=== PATIENT | female | born 1940 | race Caucasian/White ===

== ENCOUNTER 2017-12-05 20:19 | Emergency (ER) | payer MEDICARE, OTHER ==
[2017-12-06] MEDS ORDERED: SODIUM CHLORIDE 0.9% 500 ML IV STA (00:19)
[2017-12-06] MEDS ORDERED: hydrALAZINE HCL 20 MG/ML 1 ML VIAL IVP STA ×2 (00:19→01:08)
--- NOTE | 2017-12-06 00:21 | ED ---
General Adult HPI - General Chief complaint: Headache Stated complaint: headaches Time Seen by Provider: 12/06/17 00:02 Source: patient, RN notes reviewed Mode of arrival: ambulatory Limitations: no limitations - History of Present Illness Initial comments: Patient is a 77-year-old female presented to the emergency room with chief complaint of a headache. Patient states that headache started earlier in the day. Patient doesn't that she has had a history of hypertension but has not been taking her medications. She states this headache is located in front of her head. She is worried that maybe due to fumes coming from her apartment below her. Patient denies any other complaints or symptoms at this time. Patient denies any recent fever, chills, shortness of breath, chest pain, back pain, abdominal pain, nausea or vomiting, numbness or tingling, dysuria or hematuria, constipation or diarrhea, visual changes, or any other complaints. - Related Data Previous Rx's Medication Instructions Recorded amLODIPine [Norvasc] 10 mg PO DAILY #30 tablet 12/06/17 Allergies Allergy/AdvReac Type Severity Reaction Status Date / Time No Known Allergies Allergy Verified 12/05/17 23:42 Review of Systems ROS Statement: Those systems with pertinent positive or pertinent negative responses have been documented in the HPI. ROS Other: All systems not noted in ROS Statement are negative. Past Medical History Past Medical History: Hypertension History of Any Multi-Drug Resistant Organisms: None Reported Past Surgical History: No Surgical Hx Reported Past Psychological History: No Psychological Hx Reported Smoking Status: Never smoker Past Alcohol Use History: None Reported, Occasional Past Drug Use History: None Reported General Exam - General Exam Comments Initial Comments: General: The patient is awake and alert, in no distress, and does not appear acutely ill. Eye: Pupils are equal, round and reactive to light, extra-ocular movements are intact. No nystagmus. There is normal conjunctiva bilaterally. No signs of icterus. Ears, nose, mouth and throat: There are moist mucous membranes and no oral lesions. Neck: The neck is supple, there is no tenderness or JVD. Cardiovascular: There is a regular rate and rhythm. No murmur, rub or gallop is appreciated. Respiratory: Lungs are clear to auscultation, respirations are non-labored, breath sounds are equal. No wheezes, stridor, rales, or rhonchi. Musculoskeletal: Normal ROM, no tenderness. Strength 5/5. Sensation intact. Pulses equal bilaterally 2+. Neurological: A&O x 3. CN II-XII intact, There are no obvious motor or sensory deficits. Coordination appears grossly intact. Speech is normal. Skin: Skin is warm and dry and no rashes or lesions are noted. Psychiatric: Cooperative, appropriate mood & affect, normal judgment. Limitations: no limitations Course Vital Signs 12/05/17 12/05/17 12/06/17 20:39 23:52 00:35 Temperature 98.6 F Pulse Rate 87 Respiratory 20 Rate Blood Pressure 228/114 207/118 219/113 O2 Sat by Pulse 97 Oximetry 12/06/17 12/06/17 12/06/17 00:54 01:08 01:19 Temperature Pulse Rate Respiratory Rate Blood Pressure 218/102 205/91 203/91 O2 Sat by Pulse Oximetry 12/06/17 12/06/17 12/06/17 01:36 02:04 02:11 Temperature 98.1 F Pulse Rate 77 Respiratory 16 Rate Blood Pressure 148/68 93/53 111/58 O2 Sat by Pulse 96 Oximetry 12/06/17 02:54 Temperature Pulse Rate 82 Respiratory 16 Rate Blood Pressure 133/63 O2 Sat by Pulse 99 Oximetry Medical Decision Making - Medical Decision Making Patient reexamined at this time shows no signs of distress. Patient feeling much better after medications. Patient blood pressure much improved here in emergency room. Patient states she took her last amlodipine at home. She states she currently does not have a family physician. Patient says she's not been taking her blood pressure medication because she does not like taking the medicine. Patient states she will begin taking it again. She states she does plan on following up pressure given information for family physician to follow- up with. Patient doing well at this time states she is ready to be discharged. Patient will be discharged home with prescription for her blood pressure. Advised return if symptoms increase or worsen. - Lab Data Result diagrams: 12/06/17 00:45 12/06/17 00:45 Lab Results 12/06/17 12/06/17 12/06/17 Range/Units 00:45 00:45 00:45 WBC 10.7 H (3.8-10.6) k/uL RBC 4.67 (3.80-5.40) m/uL Hgb 13.9 (11.4-16.0) gm/dL Hct 42.0 (34.0-46.0) % MCV 90.0 (80.0-100.0) fL MCH 29.8 (25.0-35.0) pg MCHC 33.1 (31.0-37.0) g/dL RDW 12.8 (11.5-15.5) % Plt Count 321 (150-450) k/uL Neutrophils % 66 % Lymphocytes % 21 % Monocytes % 7 % Eosinophils % 4 % Basophils % 1 % Neutrophils # 7.1 (1.3-7.7) k/uL Lymphocytes # 2.3 (1.0-4.8) k/uL Monocytes # 0.7 (0-1.0) k/uL Eosinophils # 0.4 (0-0.7) k/uL Basophils # 0.1 (0-0.2) k/uL Carbon Monoxide, Quant 1.2 (<10.0) % Sodium 142 (137-145) mmol/L Potassium 3.7 (3.5-5.1) mmol/L Chloride 103 (98-107) mmol/L Carbon Dioxide 23 (22-30) mmol/L Anion Gap 16 mmol/L BUN 18 H (7-17) mg/dL Creatinine 0.80 (0.52-1.04) mg/dL Est GFR (CKD-EPI)AfAm 82 (>60 ml/min/1.73 sqM) Est GFR (CKD-EPI)NonAf 71 (>60 ml/min/1.73 sqM) Glucose 117 H (74-99) mg/dL Calcium 9.9 (8.4-10.2) mg/dL Disposition Clinical Impression: Hypertension, Headache Disposition: HOME SELF-CARE Instructions: Acute Headache (ED) Additional Instructions: Please use medication as prescribed follow-up family physician over the next 1- 2 days. Return here to the emergency room for any symptoms increase or worsen Prescriptions: amLODIPine [Norvasc] 10 mg PO DAILY #30 tablet Is patient prescribed a controlled substance at d/c from ED?: No Referrals: None,Stated [Primary Care Provider] - 1-2 days Vikas Yoder MD [STAFF PHYSICIAN] - 1-2 days Time of Disposition: 03:36
[2017-12-06 00:58] LABS: Basophils # (A) 0.1 k/uL (0-0.2); Basophils % (A) 1 %; Eosinophils # (A) 0.4 k/uL (0-0.7); Eosinophils % (A) 4 %; HGB 13.9 gm/dL (11.4-16.0); Lymphocytes # (A) 2.3 k/uL (1.0-4.8); Lymphocytes % (A) 21 %; MCH 29.8 pg (25.0-35.0); MCHC 33.1 g/dL (31.0-37.0); Mean Platelet Volume 7.8; Monocytes # (A) 0.7 k/uL (0-1.0); Monocytes % (A) 7 %; Neutrophils # (A) 7.1 k/uL (1.3-7.7); Neutrophils % (A) 66 %; Platelet Count 321 k/uL (150-450); RBC 4.67 m/uL (3.80-5.40); RDW 12.8 % (11.5-15.5); WBC 10.7 k/uL (3.8-10.6)
[2017-12-06 01:07] LABS: Calcium 9.9 mg/dL (8.4-10.2); Potassium 3.7 mmol/L (3.5-5.1)
--- NOTE | 2017-12-06 02:00 | CT ---
EXAMINATION TYPE: CT brain wo con DATE OF EXAM: 12/06/2017 COMPARISON: NONE HISTORY: dizziness, DURAN, hypertension, fumes in home per patient CT DLP: 1012.70 mGycm Automated exposure control for dose reduction was used. FINDINGS: There is mild cerebral cortical atrophy. There is no mass effect nor midline shift. There is no sign of intracranial hemorrhage. The calvarium is intact. IMPRESSION: CEREBRAL ATROPHY. NO ACUTE INTRACRANIAL ABNORMALITY.
[2017-12-06 02:05] VITALS: RESP 16; TEMP 98.1
[2017-12-06] MEDS ORDERED: SODIUM CHLORIDE 0.9% 500 ML IV ONE (02:14)
[2017-12-06] MEDS ORDERED: ACETAMINOPHEN IV (For NPO) 1,000 MG in EMPTY BAG 1 BAG IVPB ONE (02:14)
[2017-12-06 02:55] VITALS: BP 133/63; PULSE 82
[2017-12-06] MEDS ORDERED: KETOROLAC 30 MG/ML 1 ML VIAL IVP STA ×2 (02:58→03:02)
== END 2017-12-06 03:47 | disposition home or self-care (01) ==
LOC: EC 20:19
DX: I10 Essential (primary) hypertension (principal); R51 Headache
CPT/HCPCS: 99284; 96374; 96375 ×2; 96376; 36415; 80048; 82375; 85025; 70450; J0360; J1885; J0131

== ENCOUNTER → 2018-01-31 | Outpatient (CLI) | payer MEDICARE, OTHER ==
--- NOTE | 2018-01-31 22:52 | MR ---
EXAMINATION TYPE: MR brain wo/w con DATE OF EXAM: 01/31/2018 COMPARISON: CT brain December 06, 2017. HISTORY: History of hypertension presents with dizziness and headache. Vascular dementia per order. TECHNIQUE: Multiplanar, multisequence images of the brain and brainstem is performed without and with IV contras t, utilizing 7.5 mL intravenous Gadavist . FINDINGS: Diffusion weighted images demonstrate no evidence of a recent infarct or other diffusion ab normality. There is no worrisome extra-axial fluid collection. There is ventricular and sulcal promi nence consistent with diffuse age-related cerebral atrophy. There are scattered foci of T2 hyperinten sity seen throughout the deep and periventricular white matter. Lesions are nonspecific in appearance and distribution most likely on basis of product of chronic small vessel ischemic change in patient of this age. Midline structures demonstrate normal morphology. The craniocervical junction appears within normal limits. Post contrast images demonstrate no abnormal enhancement. The dural venous sinuses appear pa tent. The visualized sinuses are clear and the globes are intact. Patchy fluid signal right mastoid a ir cells remains present. IMPRESSION: 1. There is mild diffuse age-related cerebral atrophy and more moderate chronic small vessel ischemic change. No suspicious enhancement is noted. 2. Increased fluid signal right mastoid air cells raises concern for mastoiditis, clinical correlatio n advised. Finding may contribute to symptoms of dizziness.
== END | disposition home or self-care (01) ==
LOC: RADMRIMAIN 13:53
PROVIDERS: ATTEND Family Medicine
DX: G31.1 Senile degeneration of brain, not elsewhere classified (principal); I67.82 Cerebral ischemia; H74.8X1 Other specified disorders of right middle ear and mastoid; N18.2 Chronic kidney disease, stage 2 (mild)
CPT/HCPCS: 82565; 84520; 70553; 36415; A9581

== ENCOUNTER 2020-09-25 15:48 | Inpatient (IN) | payer MEDICARE, OTHER ==
[2020-09-25] MEDS ORDERED: SODIUM CHLORIDE 0.9% 500 ML 500 ML IV ONE (16:34)
[2020-09-25 16:52] LABS: Basophils # (A) 0.1 k/uL (0-0.2); Basophils % (A) 1 %; Eosinophils # (A) 0.1 k/uL (0-0.7); Eosinophils % (A) 1 %; Hypochromasia Slight; Lymphocytes # (A) 1.7 k/uL (1.0-4.8); Lymphocytes % (A) 15 %; MCH 28.3 pg (25.0-35.0); MCHC 32.8 g/dL (31.0-37.0); MCV 86.1 fL (80.0-100.0); Mean Platelet Volume 7.9; Monocytes # (A) 0.7 k/uL (0-1.0); Monocytes % (A) 6 %; Neutrophils # (A) 8.8 k/uL (1.3-7.7); Neutrophils % (A) 76 %; Platelet Count 422 k/uL (150-450); RBC 1.94 m/uL (3.80-5.40); RDW 14.6 % (11.5-15.5); WBC 11.6 k/uL (3.8-10.6)
[2020-09-25 16:53] LABS: Albumin 3.4 g/dL (3.5-5.0); Calcium 8.3 mg/dL (8.4-10.2); Total Bilirubin 0.3 mg/dL (0.2-1.3); Total Protein 5.9 g/dL (6.3-8.2)
[2020-09-25 16:55] LABS: HGB 5.5 gm/dL (11.4-16.0)
[2020-09-25 16:56] LABS: HCT 16.7 % (34.0-46.0)
[2020-09-25] MEDS ORDERED: PANTOPRAZOLE 40 MG/10 ML VIAL IVP STA (17:15)
[2020-09-25 17:19] LABS: Glucose,Whole Blood 179 mg/dL (75-99)
--- NOTE | 2020-09-25 17:52 | ED ---
General Adult HPI - General Chief complaint: Psychiatric Symptoms Stated complaint: Mental Health Time Seen by Provider: 09/25/20 16:07 Source: patient Mode of arrival: ambulatory Limitations: altered mental status - History of Present Illness Initial comments: 80-year-old female patient presents to the emergency department today for evaluation of altered mental status. Son reports that he saw his mom yesterday and she was feeling very weak and dizzy. States she did have a near fall related to the dizziness. States he tried checking on her today but she wouldn't answer the phones we went over to check on her. States that she was acting bizarrely, paranoid, and laughing at inappropriate times. States she does have some history of mental health issues and paranoia. States she does not go to the doctor and generally does not comply with treatment. Upon arrival patient is alert but confused to date and time. She states that she feels well and has no complaints. Denies suicidal or homicidal ideation. Patient denies any recent rash, fever, chills, cough, shortness of breath, chest pain, abdominal pain, nausea, vomiting, diarrhea, constipation, back pain, numbness, tingling, dizziness, weakness, hematuria, dysuria, urinary urgency, urinary frequency, headache, visual changes, or any other complaints. - Related Data Home Medications Medication Instructions Recorded Confirmed Donepezil [Aricept] 5 mg PO DAILY 09/25/20 09/25/20 Memantine [Namenda] 5 mg PO BID 09/25/20 09/25/20 QUEtiapine [SEROquel] 25 mg PO DAILY 09/25/20 09/25/20 Valsartan [Diovan] 40 mg PO DAILY 09/25/20 09/25/20 amLODIPine [Norvasc] 5 mg PO DAILY 09/25/20 09/25/20 hydroCHLOROthiazide [Hydrodiuril] 25 mg PO DAILY 09/25/20 09/25/20 Allergies Allergy/AdvReac Type Severity Reaction Status Date / Time No Known Allergies Allergy Verified 09/25/20 17:52 Review of Systems ROS Statement: Those systems with pertinent positive or pertinent negative responses have been documented in the HPI. ROS Other: All systems not noted in ROS Statement are negative. Past Medical History Past Medical History: Hypertension History of Any Multi-Drug Resistant Organisms: None Reported Past Surgical History: No Surgical Hx Reported Past Psychological History: No Psychological Hx Reported Past Alcohol Use History: None Reported, Occasional Past Drug Use History: None Reported General Exam Limitations: altered mental status General appearance: alert, in no apparent distress, other (This is a well developed, well nourished adult female patient in no acute distress.) ENT exam: Present: normal exam, normal oropharynx, mucous membranes moist Respiratory exam: Present: normal lung sounds bilaterally. Absent: respiratory distress, wheezes, rales, rhonchi, stridor Cardiovascular Exam: Present: regular rate, normal rhythm, normal heart sounds. Absent: systolic murmur, diastolic murmur, rubs, gallop, clicks GI/Abdominal exam: Present: soft, normal bowel sounds. Absent: distended, tenderness, guarding, rebound, rigid Rectal exam: Present: black stool. Absent: hemorrhoids Neurological exam: Present: alert, oriented X3, CN II-XII intact Psychiatric exam: Present: normal affect, normal mood Skin exam: Present: warm, dry, intact, normal color. Absent: rash Course Vital Signs 09/25/20 09/25/20 09/25/20 15:51 16:04 17:28 Temperature 98.8 F Pulse Rate 74 73 Respiratory 18 18 Rate Blood Pressure 129/59 121/52 O2 Sat by Pulse 96 99 Oximetry EKG Findings - EKG Comments: EKG Findings:: EKG obtained at 1723 shows normal sinus rhythm with a ventricular rate of 74, OK interval 150, QRS duration 84, QTC 404, QTC 448. No evidence of clinically significant ST elevation or depression. Medical Decision Making - Medical Decision Making 80-year-old female patient presents to the emergency department today for evaluation of altered mental status, paranoia, and laughing inappropriately at times. She did report some weakness and dizziness to her son yesterday. Patient is petitioned by her son for psychiatric evaluation. Physical examination was relatively unremarkable. Patient denied any current symptoms. Son and patient both deny history of GI bleed or known history of ulcers. Patient does not take any medications including NSAIDs. Labs reviewed and did reveal decreased hemoglobin at 5.5. Acute kidney injury with elevation and BUN and creatinine. I did perform a rectal exam which showed obvious black stool this was sent for occult blood testing. Patient will be given 2 units of packed red blood cells. She'll be admitted to the hospital for further evaluation by GI services. Psych was also consulted due to the petition. Case was discussed with my attending Dr. Estrada. - Lab Data Result diagrams: 09/25/20 16:36 09/25/20 16:36 Lab Results 09/25/20 09/25/20 09/25/20 Range/Units 16:36 16:36 16:36 WBC 11.6 H (3.8-10.6) k/uL RBC 1.94 L (3.80-5.40) m/uL Hgb 5.5 L* (11.4-16.0) gm/dL Hct 16.7 L* (34.0-46.0) % MCV 86.1 (80.0-100.0) fL MCH 28.3 (25.0-35.0) pg MCHC 32.8 (31.0-37.0) g/dL RDW 14.6 (11.5-15.5) % Plt Count 422 (150-450) k/uL MPV 7.9 Neutrophils % 76 % Lymphocytes % 15 % Monocytes % 6 % Eosinophils % 1 % Basophils % 1 % Neutrophils # 8.8 H (1.3-7.7) k/uL Lymphocytes # 1.7 (1.0-4.8) k/uL Monocytes # 0.7 (0-1.0) k/uL Eosinophils # 0.1 (0-0.7) k/uL Basophils # 0.1 (0-0.2) k/uL Hypochromasia Slight Sodium 133 L (137-145) mmol/L Potassium 4.0 (3.5-5.1) mmol/L Chloride 100 (98-107) mmol/L Carbon Dioxide 24 (22-30) mmol/L Anion Gap 9 mmol/L BUN 40 H (7-17) mg/dL Creatinine 1.23 H (0.52-1.04) mg/dL Est GFR (CKD-EPI)AfAm 48 (>60 ml/min/1.73 sqM) Est GFR (CKD-EPI)NonAf 41 (>60 ml/min/1.73 sqM) Glucose 110 H (74-99) mg/dL POC Glucose (mg/dL) (75-99) mg/dL POC Glu [employer] ID Calcium 8.3 L (8.4-10.2) mg/dL Total Bilirubin 0.3 (0.2-1.3) mg/dL AST 28 (14-36) U/L ALT 15 (4-34) U/L Alkaline Phosphatase 60 (38-126) U/L Troponin I 0.015 (0.000-0.034) ng/mL Total Protein 5.9 L (6.3-8.2) g/dL Albumin 3.4 L (3.5-5.0) g/dL Stool Occult Blood (Negative) Blood Type Recheck Bld Type Recheck Status Spec Expiration Date 09/25/20 09/25/20 09/25/20 Range/Units 17:17 17:29 17:29 WBC (3.8-10.6) k/uL RBC (3.80-5.40) m/uL Hgb (11.4-16.0) gm/dL Hct (34.0-46.0) % MCV (80.0-100.0) fL MCH (25.0-35.0) pg MCHC (31.0-37.0) g/dL RDW (11.5-15.5) % Plt Count (150-450) k/uL MPV Neutrophils % % Lymphocytes % % Monocytes % % Eosinophils % % Basophils % % Neutrophils # (1.3-7.7) k/uL Lymphocytes # (1.0-4.8) k/uL Monocytes # (0-1.0) k/uL Eosinophils # (0-0.7) k/uL Basophils # (0-0.2) k/uL Hypochromasia Sodium (137-145) mmol/L Potassium (3.5-5.1) mmol/L Chloride (98-107) mmol/L Carbon Dioxide (22-30) mmol/L Anion Gap mmol/L BUN (7-17) mg/dL Creatinine (0.52-1.04) mg/dL Est GFR (CKD-EPI)AfAm (>60 ml/min/1.73 sqM) Est GFR (CKD-EPI)NonAf (>60 ml/min/1.73 sqM) Glucose (74-99) mg/dL POC Glucose (mg/dL) 179 H (75-99) mg/dL POC Glu [employer] ID Connie Velasco Calcium (8.4-10.2) mg/dL Total Bilirubin (0.2-1.3) mg/dL AST (14-36) U/L ALT (4-34) U/L Alkaline Phosphatase (38-126) U/L Troponin I (0.000-0.034) ng/mL Total Protein (6.3-8.2) g/dL Albumin (3.5-5.0) g/dL Stool Occult Blood Positive H (Negative) Blood Type Recheck No Previous Record Bld Type Recheck Status CABO Indicated Spec Expiration Date 09/28/20202328 Disposition Clinical Impression: GI bleed, Anemia, Acute kidney injury Disposition: ADMITTED IP TO THIS [facility] Condition: Serious Referrals: Vikas Yoder MD [Primary Care Provider] - 1-2 days Decision to Admit Reason: Admit from EC Decision Date: 09/25/20 Decision Time: 17:55
[2020-09-25] MEDS ORDERED: ACETAMINOPHEN TAB 325 MG TAB PO PRN (17:57)
[2020-09-25] MEDS ORDERED: NALOXONE 0.4 MG/ML 1 ML VIAL IV PRN (17:57)
[2020-09-25 18:28] LABS: INR 0.9 (<1.2); Prothrombin Time 9.8 sec (9.0-12.0)
[2020-09-25 21:48] LABS: Glucose,Whole Blood 121 mg/dL (75-99)
[2020-09-26 00:49] LABS: HCT 20.8 % (34.0-46.0); MCH 28.4 pg (25.0-35.0); MCHC 32.8 g/dL (31.0-37.0); MCV 86.4 fL (80.0-100.0); Mean Platelet Volume 7.8; Platelet Count 351 k/uL (150-450); Poikilocytosis Slight; RBC 2.41 m/uL (3.80-5.40); WBC 11.2 k/uL (3.8-10.6)
[2020-09-26 01:05] LABS: HGB 6.8 gm/dL (11.4-16.0)
[2020-09-26 04:25] LABS: HCT 20.3 % (34.0-46.0); MCH 29.1 pg (25.0-35.0); MCHC 33.6 g/dL (31.0-37.0); MCV 86.6 fL (80.0-100.0); Mean Platelet Volume 7.7; Platelet Count 341 k/uL (150-450); Poikilocytosis Slight; RBC 2.35 m/uL (3.80-5.40); WBC 9.6 k/uL (3.8-10.6)
[2020-09-26 04:26] LABS: HGB 6.8 gm/dL (11.4-16.0)
[2020-09-26 04:38] LABS: Calcium 8.3 mg/dL (8.4-10.2); Potassium 3.6 mmol/L (3.5-5.1)
[2020-09-26 07:46] LABS: HCT 20.5 % (34.0-46.0); Hypochromasia Slight; MCH 29.1 pg (25.0-35.0); MCHC 33.2 g/dL (31.0-37.0); MCV 87.6 fL (80.0-100.0); Mean Platelet Volume 7.4; Platelet Count 325 k/uL (150-450); Poikilocytosis Slight; RBC 2.34 m/uL (3.80-5.40)
[2020-09-26 07:55] LABS: HGB 6.8 gm/dL (11.4-16.0)
[2020-09-26] MEDS: PANTOPRAZOLE 40 MG/10 ML VIAL IV SCH (08:52)
--- NOTE | 2020-09-26 11:04 | P.CNPUL ---
History of Present Illness Consult date: 09/26/20 Chief complaint: Anemia History of present illness: 80-year-old female patient who came into the emergency department yesterday because of an altered mentation. Known that the patient has history of chronic psychiatric disorders including bizarre behavior, paranoid schizophrenia. The patient subsequently was found to have a very low hemoglobin of 5.5. Her occult stool was positive. She did have dark tarry stool when she was admitted to the hospital. The patient herself did not notice any significant GI bleed with melanotic stools or hematemesis. No abdominal pain. The patient was hemodynamically stable and I did suspect chronic GI bleeding in this patient. The patient's hemoglobin was as low as 5.5. She was given a total of 1 units of packed RBC and the hemoglobin today is at 6.8. She is getting her second unit of packed RBC today. Her coagulation profile is within normal. Renal function showed a creatinine of 1.2 is down to 1.1. Resident electrodes are all within normal limits. Liver function tests are all within normal limits. Hemoglobin is to be followed. The patient does not take any form of nonsteroidal anti- inflammatory medication or aspirin. She doesn't take any form of anticoagulants. No history of GI bleed. Review of Systems All systems: negative Constitutional: Reports as per HPI Eyes: denies as per HPI, denies blurred vision, denies bulging eye, denies decreased vision, denies diplopia, denies discharge, denies dry eye, denies irritation, denies itching, denies pain, denies photophobia, denies loss of peripheral vision, denies loss of vision, denies tunnel vision/blind spots Ears: deny: decreased hearing, ear discharge, earache, tinnitus Ears, nose, mouth and throat: Reports as per HPI Breasts: absent: as per HPI, change in shape, gynecomastia, masses, nipple discharge, pain, skin changes, swelling Cardiovascular: Reports as per HPI Respiratory: Reports as per HPI Gastrointestinal: Reports melena Genitourinary: Denies dysuria, Denies hematuria Menstruation: Reports as per HPI Musculoskeletal: Reports as per HPI Musculoskeletal: absent: ankle pain, ankle stiffness, ankle swelling Integumentary: Denies pruritus, Denies rash Neurological: Reports weakness Psychiatric: Reports as per HPI Endocrine: Reports as per HPI, Reports fatigue Hematologic/Lymphatic: Reports as per HPI Allergic/Immunologic: Reports as per HPI Past Medical History Past Medical History: Hypertension Additional Past Medical History / Comment(s): Dementia History of Any Multi-Drug Resistant Organisms: None Reported Past Surgical History: No Surgical Hx Reported Past Anesthesia/Blood Transfusion Reactions: No Reported Reaction Past Psychological History: No Psychological Hx Reported Smoking Status: Never smoker Past Alcohol Use History: None Reported, Occasional Past Drug Use History: None Reported Medications and Allergies Home Medications Medication Instructions Recorded Confirmed Type Donepezil [Aricept] 5 mg PO DAILY 09/25/20 09/25/20 History Memantine [Namenda] 5 mg PO BID 09/25/20 09/25/20 History QUEtiapine [SEROquel] 25 mg PO DAILY 09/25/20 09/25/20 History Valsartan [Diovan] 40 mg PO DAILY 09/25/20 09/25/20 History amLODIPine [Norvasc] 5 mg PO DAILY 09/25/20 09/25/20 History hydroCHLOROthiazide [Hydrodiuril] 25 mg PO DAILY 09/25/20 09/25/20 History Allergies Allergy/AdvReac Type Severity Reaction Status Date / Time No Known Allergies Allergy Verified 09/25/20 17:52 Physical Exam Vitals: Vital Signs Temp Pulse Resp BP Pulse Ox 09/26/20 10:00 68 17 106/50 96 09/26/20 09:42 98.0 F 82 16 108/64 98 09/26/20 09:12 98.3 F 82 16 106/50 95 09/26/20 09:07 98.1 F 62 12 110/62 100 09/26/20 09:02 98.2 F 62 12 102/65 95 09/26/20 09:00 61 12 119/54 96 09/26/20 08:00 98.1 F 70 12 91/46 94 L 09/26/20 07:00 66 12 108/48 95 09/26/20 06:00 65 24 100/50 94 L 09/26/20 05:00 67 10 L 101/51 94 L 09/26/20 04:00 98.8 F 67 14 98/49 96 09/26/20 03:00 68 18 112/49 94 L 09/26/20 02:00 75 17 117/51 95 09/26/20 01:00 80 10 L 114/54 95 09/26/20 00:00 98.8 F 71 14 105/80 98 09/25/20 23:02 98.2 F 62 12 106/50 96 09/25/20 23:00 67 22 110/72 97 09/25/20 22:03 98.8 F 71 18 108/89 98 09/25/20 22:00 74 18 139/57 98 09/25/20 21:50 72 15 99 09/25/20 21:41 98.8 F 68 11 L 139/57 100 09/25/20 20:59 79 18 131/55 99 09/25/20 20:03 99.6 F 79 16 121/61 99 09/25/20 19:33 99.4 F 71 18 108/38 99 09/25/20 19:23 99.4 F 73 16 128/56 99 09/25/20 19:17 98.2 F 70 18 112/70 09/25/20 18:23 76 18 116/50 100 09/25/20 17:28 98.8 F 73 18 121/52 99 09/25/20 16:04 18 129/59 09/25/20 15:51 74 96 Intake and Output 09/25/20 09/26/20 09/26/20 22:59 06:59 14:59 Intake Total 0 620 300 Output Total 0 0 0 Balance 0 620 300 Intake: Blood Product 0 620 300 Rc As-1 Unit 0 310 [id number] Rc Pheresis As-3 Unit 0 [id number] Output: Urine 0 0 0 Other: # Voids 1 # Bowel Movements 1 Weight 75 kg 75 kg The patient appeared well nourished and normally developed. Vital signs as documented. Head exam is unremarkable. No scleral icterus or corneal arcus noted. Neck is without jugular venous distension, thyromegaly, or carotid bruits. Carotid upstrokes are brisk bilaterally. Lungs are clear to auscultation and percussion. Cardiac exam reveals the PMI to be normally sized and situated. Rhythm is regular. First and second heart sounds normal. No murmurs, rubs or gallops. Abdominal exam reveals normal bowel sounds, no masses, no organomegaly and no aortic enlargement. Extremities are nonedematous and both femoral and pedal pulses are normal.Examination of the skin revealed no evidence of sign ificant rashes, suspicious appearing nevi or other concerning lesions.Neurologically, the patient is awake and alert and the patient does not have any focal neurological deficit. Cranial nerves are essentially intact. The patient at times is appropriate and answering my questions. She is oriented to place and time and self. She has no focal neurological deficits. Results - Laboratory Findings CBC and BMP: 09/26/20 07:29 09/26/20 03:52 PT/INR, D-dimer PT 9.8 sec (9.0-12.0) 09/25/20 17:29 INR 0.9 (<1.2) 09/25/20 17:29 Abnormal lab findings: Abnormal Labs 09/25/20 09/25/20 09/25/20 16:36 16:36 17:17 WBC 11.6 H RBC 1.94 L Hgb 5.5 L* Hct 16.7 L* Neutrophils # 8.8 H APTT Sodium 133 L BUN 40 H Creatinine 1.23 H Glucose 110 H POC Glucose (mg/dL) 179 H Calcium 8.3 L Total Protein 5.9 L Albumin 3.4 L Stool Occult Blood Crossmatch 09/25/20 09/25/20 09/25/20 17:29 17:29 17:29 WBC RBC Hgb Hct Neutrophils # APTT 18.0 L Sodium BUN Creatinine Glucose POC Glucose (mg/dL) Calcium Total Protein Albumin Stool Occult Blood Positive H Crossmatch See Detail 09/25/20 09/26/20 09/26/20 21:47 00:29 03:52 WBC 11.2 H RBC 2.41 L 2.35 L Hgb 6.8 L* 6.8 L* Hct 20.8 L 20.3 L Neutrophils # APTT Sodium BUN Creatinine Glucose POC Glucose (mg/dL) 121 H Calcium Total Protein Albumin Stool Occult Blood Crossmatch 09/26/20 09/26/20 03:52 07:29 WBC RBC 2.34 L Hgb 6.8 L* Hct 20.5 L Neutrophils # APTT Sodium 131 L BUN 31 H Creatinine 1.18 H Glucose 106 H POC Glucose (mg/dL) Calcium 8.3 L Total Protein Albumin Stool Occult Blood Crossmatch Assessment and Plan Plan: 1 severe anemia attributed to upper GI bleeding. The patient was noted to have a rather melanotic stool here in the hospital in the intensive care unit. At the time of arrival to the hospital, the patient's hemoglobin was 5.5. She was given a unit of packed RBC and hemoglobin is up to 6.8. Another unit of packed RBC was given and we are awaiting the follow-up hemoglobin level. Meanwhile, the patient is hemodynamically stable. No active signs of bleeding. GI consultation is pending. Coagulation profile is within normal. Stool occult blood was positive. 2 upper GI bleed, suspected 3 hypertension 4 dementia 5 history of paranoia Plan Given a second unit of packed RBC and obtain a follow-up hemoglobin. IV fluids running at KVO and the patient is hemodynamically stable Correlation profile is within normal Give the patient IV Protonix GI consultation She can be transferred out of the intensive care unit if the hemoglobin as above 7
[2020-09-26] MEDS: MEMANTINE 5 MG TAB PO SCH (11:05)
[2020-09-26] MEDS: DONEPEZIL 5 MG TAB PO SCH (11:05)
[2020-09-26] MEDS: QUEtiapine 25 MG TAB PO SCH (11:05)
[2020-09-26 12:18] LABS: Appearance,Urine Clear (Clear); Bacteria,Urine Rare /hpf; Bilirubin,Urine Negative (Negative); Blood,Urine Small (Negative); Color,Urine Yellow; Glucose,Urine (UA) Negative (Negative); Hyaline Casts,Urine 1 /lpf (0-2); Ketones,Urine Negative (Negative); Leukocyte Esterase,Urine Small (Negative); Mucus,Urine Rare /hpf; Nitrite,Urine Negative (Negative); Protein,Urine Trace (Negative); RBC,Urine 1 /hpf (0-5); Specific Gravity,Urine 1.023 (1.001-1.035); Urobilinogen,Urine <2.0 mg/dL (<2.0); WBC,Urine 4 /hpf (0-5)
[2020-09-26 12:31] LABS: Amphetamine Screen,Urine Not Detected (NotDetected); Barbiturate Screen,Urine Not Detected (NotDetected); Benzodiazepines Screen,Urine Not Detected (NotDetected); Cocaine Screen,Urine Not Detected (NotDetected); Methadone Screen, Urine Not Detected (NotDetected); Opiate Screen,Urine Not Detected (NotDetected); Oxycodone Screen, Urine Not Detected (NotDetected); Phencyclidine Screen,Urine Not Detected (NotDetected); Tricyclic Antidepressant,Urine Not Detected (NotDetected); Urn Cannabinoid Scrn Not Detected (NotDetected)
--- NOTE | 2020-09-26 12:41 | CONS ---
CONSULTATION DATE OF SERVICE: 09/26/2020 REASON FOR CONSULTATION: Severe symptomatic anemia and black tarry stools. HISTORY OF PRESENT ILLNESS: The patient is an 80-year-old pleasant white female admitted to the hospital with altered mental status. Apparently, her son found her very weak, dizzy, with unsteady gait with some altered mental status for the last 3 or 4 days duration. She brought him to the emergency room and was noted to have a hemoglobin of 5.8 g/dL requiring a unit of blood transfusion. Repeat CBC was 6.8 g/dL and she is receiving a 2nd unit of PRBC transfusion. The patient denies any abdominal pain. She reports nausea, vomiting. As per the nursing staff, she had some one episode of dark solid stool last night, but the patient denies any bleeding at home. She reports no prior history of peptic ulcer disease or recent NSAID use. No history of EGD or colonoscopy in the past. PAST MEDICAL HISTORY: Significant for hypertension, mild dementia, anxiety, depression. MEDICATIONS: At home, Aricept, Namenda, Seroquel, Diovan, Norvasc and HydroDIURIL. ALLERGIES: None. PAST SURGICAL HISTORY: None. SOCIAL HISTORY: No smoking. No alcohol use. FAMILY HISTORY: Unremarkable. REVIEW OF SYSTEMS: CARDIOPULMONARY: No chest pain or shortness of breath. : No dysuria, no hematuria. MUSCULOSKELETAL: She complains of left arm pain. NEUROLOGY: Unremarkable. PSYCHIATRIC: Unremarkable. ENT/VISION: Unremarkable. CONSTITUTIONAL: No recent weight loss. No fever, chills, night sweats. HEMATOLOGY: Severe symptomatic anemia. NEUROLOGY: Unremarkable. CONSTITUTIONAL: No recent weight loss. No fever, chills, night sweats. PHYSICAL EXAMINATION: GENERAL: She appears comfortable. No apparent distress. VITAL SIGNS: Stable. Blood pressure is 112/50, pulse rate 68, temperature 98. HEENT: Examination unremarkable. Conjunctivae are pink. Sclerae anicteric. Oral cavity no lesions. NECK: No JVD or lymph node enlargement. CHEST: Clear to auscultation. HEART: Regular rate and rhythm. ABDOMEN: Soft. Bowel sounds are positive. No organomegaly. EXTREMITIES: No pedal edema. SKIN: No rashes. NEUROLOGIC: Alert and oriented x3. No focal deficits. LABS: Labs at the time of admission the hospital WBC was 11.6, hemoglobin 5.5, and platelets normal. MCV 86. PT 9.8, INR 1.9. BUN 40, creatinine 1.23. AST, ALT, T-bilirubin and alkaline phosphatase are within normal limits. Troponin less than 0.01. Stool occult blood was positive. Coronavirus PCR is negative. IMPRESSION: 1. Severe symptomatic anemia with a hemoglobin of 5.5 g/dL and black tarry stools x1 yesterday. Clinically patient does not have any active ongoing bleeding, but as per the nursing staff had a small black bowel movement last night. She is currently receiving 2 units of PRBC transfusion. Last hemoglobin was 6.8 g/dL. No prior history of EGD or colonoscopy in the past. She denies any recent NSAID use and no history of peptic ulcer disease. 2. History of hypertension. 3. History of mild dementia. 4. Anxiety and depression. RECOMMENDATION: 1. Agree with PRBC transfusion. 2. Continue with Protonix 40 mg daily. 3. Monitor CBC. 4. Start her on a clear liquid diet. 5. I discussed with her the possibility of EGD and colonoscopy. At this time she is refusing to have these procedures done. I will discuss with her son and further recommendations will be made. Thank you for this consultation. MMODL / IJN: [id number] /
--- NOTE | 2020-09-26 12:52 | P.CN ---
Psychiatric Consult - . Consult date: 09/26/20 Consult:: IDENTIFYING DATA: She is a 80-year-old female admitted to medicine service for evaluation of acute change in mental status. The emergency room physician requested a psychiatric consult. HISTORY OF PRESENT ILLNESS: I reviewed the medical record, interviewed the patient, spoke with her nurse and spoke with her son on the telephone. Her son completed a Petition that read "She is very disoriented and not making sense. Refused to be taken to the hospital. I was fearful for health and well-being and she can care for herself." She denied problems or concerns but acknowledged that her son was concerned about her well-being and insisted that she come to the hospital. She alleged that she was unaware of why her son was concerned about her. Her son, Dillon, stated that she was diagnosed with a dementia about 2 years ago. He came to her apartment on prior to admission and found that she was weak, dizzy and unsteady on her feet. She declined to come to the emergency room or to seek medical care at that time. On Monday, he became concerned when she didn't answer the phone. He stated that she was "not making sense" and appeared confused. He completed the petition because she refused to come to the emergency room and when she was in the emergency room she insisted to leave. Since he's been admitted to medicine unit she was diagnosed with anemia with an initial hemoglobin of 5.5. After 2 units of red blood cells her hemoglobin increased to 6.8. PAST PSYCHIATRIC HISTORY: She is no history of psychiatric hospitalizations. She is never met with the mental health professional or psychiatrist. Her primary care provider diagnosed a dementia. The primary prescribed Aricept and Namenda for her dementia. The primary also prescribed Seroquel 25 mg daily for the treatment of paranoia. Her son stated that her mother has become more paranoid since she's been diagnosed with dementia and intermittently expresses a belief that people are breaking into her apartment. PAST MEDICAL HISTORY: Hypertension ALLERGIES: NO KNOWN DRUG ALLERGIES SUBSTANCE USE HISTORY: No history of substance use or alcohol problems FAMILY PSYCHIATRIC/SUBSTANCE USE HISTORY: As a family history of alcohol use problems SOCIAL HISTORY: She is and lives alone in her own apartment. Her son reports that she is still driving. She is responsible for the care of her own home. She does her own shopping and cooking. He assist her with managing her medical appointments and her medications. MENTAL STATUS EXAM: She presented as a casually groomed elderly female who was resting comfortably in bed. She made eye contact and appeared to attend to the interview. She had no distinction features are prominent physical abnormalities. She had a blunted facial expression. She was alert and oriented to person and place. She had psychomotor retardation but no abnormal involuntary movements. I did not evaluate his gait. Her speech was nonspontaneous and had decreased rate, volume and rhythm. Her affect was blunted but appropriate. She denied suicidal ideation, wishes or homicidal ideation. She denied feeling hopeless, helpless or worthless. She did not express ideas reference, paranoid ideation or delusions. Her thinking was concrete but her associations were coherent, logical and goal directed. She denied hallucinations did not appear to be responding to internal stimuli. We completed the "short orientation memory and concentration test. Her total weighted error score was 17/28. Total weighted error score greater than or equal to 10 suggestive of dementia. She did not know the year or the month. She is able to repeat the memory phrase "Vikas Boles, [address] [place] [address].". She estimated the time. She will count backwards from 21 but was unable to name the months of year in reverse order. She recalled 2 elements of memory phrase after distraction exercise. IMPRESSIONS: She is a 80-year-old female who has a diagnosis of a major neurocognitive disorder most likely related to an Alzheimer's disease. Her son reported increasing paranoia and confusion since she's been diagnosed with a dementia. [facility] change in mental status. Since admission she's been diagnosed with a anemia and received 2 units of red blood cells. She has no history of a psychiatric illness or substance use problem. Her presentation is most likely result of acute delirium in the context of a chronic dementia. DIAGNOSIS: Delirium due to another medical condition, major neurocognitive disorder RECOMMENDATION: There is no indication for transfer the psychiatric unit at this time. Evaluate and manage medical conditions or acute cause an acute delirium. Continue Aricept 5 mg daily and Namenda 5 mg daily for the treatment of the a general cognitive disorder. Continue Seroquel 25 mg daily. Thank you for this consult. 09/26/20 12:33
[2020-09-26 13:17] LABS: Basophils # (A) 0.1 k/uL (0-0.2); Basophils % (A) 1 %; Eosinophils # (A) 0.4 k/uL (0-0.7); Eosinophils % (A) 4 %; HGB 8.1 gm/dL (11.4-16.0); Hypochromasia Slight; Lymphocytes % (A) 25 %; MCH 28.5 pg (25.0-35.0); MCHC 32.5 g/dL (31.0-37.0); MCV 87.6 fL (80.0-100.0); Mean Platelet Volume 7.6; Monocytes # (A) 0.6 k/uL (0-1.0); Monocytes % (A) 8 %; Neutrophils # (A) 5.1 k/uL (1.3-7.7); Neutrophils % (A) 62 %; Platelet Count 344 k/uL (150-450); Poikilocytosis Moderate; RBC 2.85 m/uL (3.80-5.40); RDW 14.4 % (11.5-15.5); WBC 8.3 k/uL (3.8-10.6)
--- NOTE | 2020-09-27 00:40 | P.HPIM ---
History of Present Illness H&P Date: 09/26/20 Chief Complaint: Altered mental status Patient is a 80-year-old female with a known history of hypertension, dementia presents to ER due to altered mental status. Patient also has psychiatric illness and bizarre behavior, paranoid schizophrenia. Patient was found to have hemoglobin level of 5.5 and FOBT positive. Patient did have dark tarry stool while in the hospital and was admitted to the hospital. Patient otherwise is a poor historian. No complaints of abdominal pain. No nausea vomiting. No hematemesis. Patient received 1 unit of PRBC and hemoglobin improved to 6.8 today. Laboratory data showed liver functions within normal limits. Not coagulopathic. EKG showed normal sinus rhythm Review of Systems Complete review of systems could not be obtained from the patient. Past Medical History Past Medical History: Hypertension Additional Past Medical History / Comment(s): Dementia History of Any Multi-Drug Resistant Organisms: None Reported Past Surgical History: No Surgical Hx Reported Past Anesthesia/Blood Transfusion Reactions: No Reported Reaction Past Psychological History: No Psychological Hx Reported Smoking Status: Never smoker Past Alcohol Use History: None Reported, Occasional Past Drug Use History: None Reported Medications and Allergies Home Medications Medication Instructions Recorded Confirmed Type Donepezil [Aricept] 5 mg PO DAILY 09/25/20 09/25/20 History Memantine [Namenda] 5 mg PO BID 09/25/20 09/25/20 History QUEtiapine [SEROquel] 25 mg PO DAILY 09/25/20 09/25/20 History Valsartan [Diovan] 40 mg PO DAILY 09/25/20 09/25/20 History amLODIPine [Norvasc] 5 mg PO DAILY 09/25/20 09/25/20 History hydroCHLOROthiazide [Hydrodiuril] 25 mg PO DAILY 09/25/20 09/25/20 History Allergies Allergy/AdvReac Type Severity Reaction Status Date / Time No Known Allergies Allergy Verified 09/25/20 17:52 Physical Exam Vitals: Vital Signs Temp Pulse Resp BP Pulse Ox 09/26/20 10:00 68 17 106/50 96 09/26/20 09:42 98.0 F 82 16 108/64 98 09/26/20 09:12 98.3 F 82 16 106/50 95 09/26/20 09:07 98.1 F 62 12 110/62 100 09/26/20 09:02 98.2 F 62 12 102/65 95 09/26/20 09:00 61 12 119/54 96 09/26/20 08:00 98.1 F 70 12 91/46 94 L 09/26/20 07:00 66 12 108/48 95 09/26/20 06:00 65 24 100/50 94 L 09/26/20 05:00 67 10 L 101/51 94 L 09/26/20 04:00 98.8 F 67 14 98/49 96 09/26/20 03:00 68 18 112/49 94 L 09/26/20 02:00 75 17 117/51 95 09/26/20 01:00 80 10 L 114/54 95 09/26/20 00:00 98.8 F 71 14 105/80 98 09/25/20 23:02 98.2 F 62 12 106/50 96 09/25/20 23:00 67 22 110/72 97 09/25/20 22:03 98.8 F 71 18 108/89 98 09/25/20 22:00 74 18 139/57 98 09/25/20 21:50 72 15 99 09/25/20 21:41 98.8 F 68 11 L 139/57 100 09/25/20 20:59 79 18 131/55 99 09/25/20 20:03 99.6 F 79 16 121/61 99 09/25/20 19:33 99.4 F 71 18 108/38 99 09/25/20 19:23 99.4 F 73 16 128/56 99 09/25/20 19:17 98.2 F 70 18 112/70 09/25/20 18:23 76 18 116/50 100 09/25/20 17:28 98.8 F 73 18 121/52 99 09/25/20 16:04 18 129/59 09/25/20 15:51 74 96 Intake and Output 09/25/20 09/26/20 09/26/20 22:59 06:59 14:59 Intake Total 0 620 300 Output Total 0 0 0 Balance 0 620 300 Intake: Blood Product 0 620 300 Rc As-1 Unit 0 310 [id number] Rc Pheresis As-3 Unit 0 [id number] Output: Urine 0 0 0 Other: # Voids 1 # Bowel Movements 1 Weight 75 kg 75 kg PHYSICAL EXAMINATION: Patient is lying in the bed comfortably, no acute distress, awake alert and not oriented.. HEENT: Normocephalic. Neck is supple. Pupils reactive. Nostrils clear. Oral cavity is moist. Ears reveal no drainage. Neck reveals no JVD, carotid bruits, or thyromegaly. CHEST EXAMINATION: Trachea is central. Symmetrical expansion. Lung davila clear to auscultation and percussion. CARDIAC: Normal S1, S2 with no gallops. No murmurs ABDOMEN: Soft. Bowel sounds normal. No organomegaly. No abdominal bruits. Extremities: reveal no edema. No clubbing or cyanosis Neurologically awake, alert, oriented x1 with well-coordinated movements. No focal deficits noted Skin: No rash or skin lesions. Psychiatric: Coperative. Bizarre behavior Musculoskeletal: No joint swelling or deformity. Normal range of motion. Results CBC & Chem 7: 09/26/20 12:52 09/26/20 03:52 Labs: Abnormal Lab Results - Last 24 Hours (Table) 09/25/20 09/25/20 09/25/20 Range/Units 16:36 16:36 17:17 WBC 11.6 H (3.8-10.6) k/uL RBC 1.94 L (3.80-5.40) m/uL Hgb 5.5 L* (11.4-16.0) gm/dL Hct 16.7 L* (34.0-46.0) % Neutrophils # 8.8 H (1.3-7.7) k/uL APTT (22.0-30.0) sec Sodium 133 L (137-145) mmol/L BUN 40 H (7-17) mg/dL Creatinine 1.23 H (0.52-1.04) mg/dL Glucose 110 H (74-99) mg/dL POC Glucose (mg/dL) 179 H (75-99) mg/dL Calcium 8.3 L (8.4-10.2) mg/dL Total Protein 5.9 L (6.3-8.2) g/dL Albumin 3.4 L (3.5-5.0) g/dL Stool Occult Blood (Negative) Crossmatch 09/25/20 09/25/20 09/25/20 Range/Units 17:29 17:29 17:29 WBC (3.8-10.6) k/uL RBC (3.80-5.40) m/uL Hgb (11.4-16.0) gm/dL Hct (34.0-46.0) % Neutrophils # (1.3-7.7) k/uL APTT 18.0 L (22.0-30.0) sec Sodium (137-145) mmol/L BUN (7-17) mg/dL Creatinine (0.52-1.04) mg/dL Glucose (74-99) mg/dL POC Glucose (mg/dL) (75-99) mg/dL Calcium (8.4-10.2) mg/dL Total Protein (6.3-8.2) g/dL Albumin (3.5-5.0) g/dL Stool Occult Blood Positive H (Negative) Crossmatch See Detail 09/25/20 09/26/20 09/26/20 Range/Units 21:47 00:29 03:52 WBC 11.2 H (3.8-10.6) k/uL RBC 2.41 L 2.35 L (3.80-5.40) m/uL Hgb 6.8 L* 6.8 L* (11.4-16.0) gm/dL Hct 20.8 L 20.3 L (34.0-46.0) % Neutrophils # (1.3-7.7) k/uL APTT (22.0-30.0) sec Sodium (137-145) mmol/L BUN (7-17) mg/dL Creatinine (0.52-1.04) mg/dL Glucose (74-99) mg/dL POC Glucose (mg/dL) 121 H (75-99) mg/dL Calcium (8.4-10.2) mg/dL Total Protein (6.3-8.2) g/dL Albumin (3.5-5.0) g/dL Stool Occult Blood (Negative) Crossmatch 09/26/20 09/26/20 Range/Units 03:52 07:29 WBC (3.8-10.6) k/uL RBC 2.34 L (3.80-5.40) m/uL Hgb 6.8 L* (11.4-16.0) gm/dL Hct 20.5 L (34.0-46.0) % Neutrophils # (1.3-7.7) k/uL APTT (22.0-30.0) sec Sodium 131 L (137-145) mmol/L BUN 31 H (7-17) mg/dL Creatinine 1.18 H (0.52-1.04) mg/dL Glucose 106 H (74-99) mg/dL POC Glucose (mg/dL) (75-99) mg/dL Calcium 8.3 L (8.4-10.2) mg/dL Total Protein (6.3-8.2) g/dL Albumin (3.5-5.0) g/dL Stool Occult Blood (Negative) Crossmatch Thrombosis Risk Factor Assmnt - DVT/VTE Prophylaxis DVT/VTE Prophylaxis: Mechanical Prophylaxis ordered - Choose All That Apply Each Risk Factor Represents 3 Points: Age 75 years or older Thrombosis Risk Factor Assessment Total Risk Factor Score: 3 Thrombosis Risk Factor Assessment Level: Moderate Risk Assessment and Plan Assessment: Acute blood loss anemia secondary to upper GI bleed with melanotic stools. Hemoglobin was 5.5 on admission improved to 6.8 with 1 unit of PRBC. GI was consulted Hypertension Dementia Schizophrenia Plan: Patient will be continued on IV hydration and PPI. Monitor H&H. Nothing by mouth and GI service was consulted. Patient may need possible endoscopy. Psychiatry was consulted due to bizarre behavior and schizophrenia. Time with Patient: Greater than 30
[2020-09-27 06:57] LABS: Calcium 8.5 mg/dL (8.4-10.2); Potassium 3.7 mmol/L (3.5-5.1)
[2020-09-27] MEDS: QUEtiapine 25 MG TAB PO SCH (07:49)
[2020-09-27] MEDS: PANTOPRAZOLE 40 MG/10 ML VIAL IV SCH (07:49)
[2020-09-27] MEDS: MEMANTINE 5 MG TAB PO SCH (07:49)
[2020-09-27] MEDS: DONEPEZIL 5 MG TAB PO SCH (07:49)
--- NOTE | 2020-09-27 10:51 | PN ---
PROGRESS NOTE DATE OF SERVICE: 09/27/2020 Patient is an 80-year-old pleasant white female admitted to the hospital with severe symptomatic anemia and hemoglobin of 5.6 requiring 2 units of PRBC transfusion. Repeat hemoglobin today is 8.1 g/dL. She denies any GI symptoms. She did have some black tarry stools while in the intensive care unit. She was transferred to the floor yesterday. The patient denies any abdominal pain. No nausea, no vomiting. Remains on a clear liquid diet in anticipation of EGD and colonoscopy tomorrow, however, she continues to refuse to have this procedure. PHYSICAL EXAMINATION: GENERAL: She appears comfortable. VITAL SIGNS: Stable. Blood pressure 128/74, pulse rate 61, temperature 97.4. HEENT: Examination unremarkable. Conjunctivae are pink. Sclerae anicteric. Oral cavity no lesions. NECK: No JVD. No lymph node enlargement. CHEST: Clear to auscultation. HEART: Regular rate and rhythm. ABDOMEN: Soft. Bowel sounds are positive. No organomegaly. EXTREMITIES: No pedal edema. SKIN: No rashes. NEURO: She is alert and oriented x3. No focal deficits. LABS: From today WBC 8.3, hemoglobin 8.1, platelets normal. BUN 20, creatinine 1.06. IMPRESSION: 1. Severe symptomatic anemia with a hemoglobin of 5.5 g/dL requiring 2 units of PRBC transfusion. Last hemoglobin is 8 g/dL. She had a few episodes of black tarry stools prior to hospitalization. Most likely dealing with an upper GI source of bleeding, possibly a colonic source cannot be excluded. The patient currently is hemodynamically stable. 2. History of mild dementia. 3. Altered mental status, resolved. RECOMMENDATION: 1. Continue with a clear liquid diet. 2. Continue with Protonix 40 mg daily. 3. Monitor CBC daily. 4. Once again, I had a lengthy discussion with the patient regarding EGD and colonoscopy tomorrow and she continues to refuse it. We will try to talk to her son today and decide regarding endoscopic intervention. For now we will keep her on a clear liquid diet and monitor her labs closely. Thank you for this consultation. MMODL / FILIBERTON: [id number] /
[2020-09-27] MEDS ORDERED: PEG 3350-NA SULF,BICARB,CL/KCL 4,000 ML BOTTLE PO ONE (17:00)
--- NOTE | 2020-09-28 01:30 | P.PN ---
Subjective Progress Note Date: 09/27/20 Principal diagnosis: Acute GI bleed Bizarre behavior Patient is a 80-year-old female with a known history of hypertension, dementia presents to ER due to altered mental status. Patient also has psychiatric illness and bizarre behavior, paranoid schizophrenia. Patient was found to have hemoglobin level of 5.5 and FOBT positive. Patient did have dark tarry stool while in the hospital and was admitted to the hospital. Patient otherwise is a poor historian. No complaints of abdominal pain. No nausea vomiting. No hematemesis. Patient received 1 unit of PRBC and hemoglobin improved to 6.8 today. Laboratory data showed liver functions within normal limits. Not coagulopathic. EKG showed normal sinus rhythm 09/27/2020 Patient is currently resting in the bed comfortably. Awake alert but patient is having bizarre behavior. Psychiatry is following. Otherwise hemoglobin level is 8.1 today. Patient refused to get EGD. No complaints of chest pain or shortness of the. No nausea vomiting. Denied any dark-colored stooltoday. Current medications reviewed. Objective - Vital Signs Vital signs: Vital Signs Temp 97.5 F L 09/27/20 14:00 Pulse 70 09/27/20 14:00 Resp 18 09/27/20 14:00 BP 185/80 09/27/20 14:00 Pulse Ox 98 09/27/20 14:00 Intake & Output 09/26/20 09/27/20 09/27/20 18:59 06:59 18:59 Intake Total 1298 540 Output Total 575 Balance 723 540 Weight 75 kg Intake: Oral 720 540 Blood Product 578 Rc Pheresis As-3 Unit 278 [id number] Output: Urine 575 Other: # Voids 2 3 - Exam PHYSICAL EXAMINATION: Patient is lying in the bed comfortably, no acute distress, awake alert and not oriented.. HEENT: Normocephalic. Neck is supple. Pupils reactive. Nostrils clear. Oral cavity is moist. Ears reveal no drainage. Neck reveals no JVD, carotid bruits, or thyromegaly. CHEST EXAMINATION: Trachea is central. Symmetrical expansion. Lung davila clear to auscultation and percussion. CARDIAC: Normal S1, S2 with no gallops. No murmurs ABDOMEN: Soft. Bowel sounds normal. No organomegaly. No abdominal bruits. Extremities: reveal no edema. No clubbing or cyanosis Neurologically awake, alert, oriented x1 with well-coordinated movements. No focal deficits noted Skin: No rash or skin lesions. Psychiatric: Coperative. Bizarre behavior Musculoskeletal: No joint swelling or deformity. Normal range of motion. - Labs CBC & Chem 7: 09/26/20 12:52 09/27/20 05:45 Labs: Abnormal Lab Results - Last 24 Hours (Table) 09/27/20 Range/Units 05:45 Sodium 135 L (137-145) mmol/L BUN 20 H (7-17) mg/dL Creatinine 1.06 H (0.52-1.04) mg/dL Assessment and Plan Assessment: Acute blood loss anemia secondary to upper GI bleed with melanotic stools. Hemoglobin was 5.5 on admission improved to 6.8 with 1 unit of PRBC. GI is following. Hypertension Dementia Schizophrenia Plan: Patient will be continued on IV hydration and PPI. Monitor H&H. Patient will need endoscopy but refusing. Psychiatry was consulted due to bizarre behavior and schizophrenia.
[2020-09-28] MEDS: MEMANTINE 5 MG TAB PO SCH (08:48)
[2020-09-28] MEDS: QUEtiapine 25 MG TAB PO SCH (08:48)
[2020-09-28] MEDS: DONEPEZIL 5 MG TAB PO SCH (08:49)
[2020-09-28 09:30] LABS: Basophils # (A) 0.09 X 10*3/uL (0.00-0.10); Eosinophils # (A) 0.44 X 10*3/uL (0.04-0.35); HCT 25.3 % (37.2-46.3); HGB 8.3 g/dL (12.0-15.0); Lymphocytes # (A) 1.62 X 10*3/uL (0.90-5.00); Lymphocytes % (A) 18.3 %; MCH 28.9 pg (27.0-32.0); MCHC 32.8 g/dL (32.0-37.0); MCV 88.2 fL (80.0-97.0); Mean Platelet Volume 10.5 fL (9.5-12.2); Monocytes # (A) 0.89 X 10*3/uL (0.20-1.00); Monocytes % (A) 10.1 %; Neutrophils # (A) 5.78 X 10*3/uL (1.80-7.70); Neutrophils % (A) 65.4 %; Platelet Count 405 X 10*3/uL (140-440); RBC 2.87 X 10*6/uL (4.10-5.20); RDW 14.2 % (11.5-14.5); WBC 8.84 X 10*3/uL (4.50-10.00)
[2020-09-28 09:52] LABS: African American GFR (CKD) 69.5 (60.0-200.0); BUN/Creat Ratio 13.33 Ratio (12.00-20.00); Calcium 8.5 mg/dL (8.7-10.3); Potassium 3.9 mmol/L (3.5-5.5)
[2020-09-28] MEDS: PANTOPRAZOLE 40 MG/10 ML VIAL IV SCH (10:14)
--- NOTE | 2020-09-28 11:50 | CDI ---
Documentation Clarification Form Date: 09/28/2020 11:40:21 AM From: Veronica Garcia RN, CCDS Admit Date: 09/25/2020 07:19:00 PM Patient Name: Yecenia Wynne Visit Number: [id number] ATTENTION: The Clinical Documentation Specialists (CDI) and [facility] Coding Staff appreciate your assistance in clarifying documentation. Please respond to the clarification below the line at the bottom and electronically sign. The CDI & [facility] Coding staff will review the response and follow-up if needed. Please note: Queries are made part of the Legal Health Record. If you have any questions, please contact the author of this message via ITS. Dr. Chase Fagan MARKELL was documented in the ED clinical impression and requires clarification by the attending MD. History/Risk Factors: 12/06/2017 Patients baseline BUN/CR/GFR: 18/.8/71 HTN, Acute blood loss anemia with suspected upper GIB Clinical Indicators: 09/25 ED Clinical Impression: "GI bleed, Anemia, Acute kidney injury." 09/25-09/28 Hgb: 5.5/6.8/8.1/8.3 09/25-09/28 Current BUN: 40/31/20/12 Cr: 1.23/1.18/1.06/.9 GFR: 41/44/50/60 Treatment: 09/25 1 unit PRBC's transfused 09/26 1 unit PRBC's transfused 09/25 500 cc 0.9% NS IVF bolus In order to capture the severity of condition, please clarify if the condition signifies: Acute renal failure, Please specify etiology (if known): Cortical Necrosis Medullary Necrosis Tubular Necrosis Acute kidney injury Acute on chronic renal failure CKD Stage 1 GFR >90 CKD Stage 2 GFR 60-89 CKD Stage 3 GFR 30-59 Other, please specify Unable to determine MTDD
[2020-09-28] MEDS ORDERED: QUEtiapine 25 MG TAB PO PRN (12:18)
--- NOTE | 2020-09-28 13:16 | P.PN ---
Subjective 80-year-old female with a known history of hypertension, dementia presents to ER due to altered mental status. Patient also has psychiatric illness and bizarre behavior, paranoid schizophrenia. Patient was found to have hemoglobin level of 5.5 and FOBT positive. Patient did have dark tarry stool while in the hospital and was admitted to the hospital. Patient otherwise is a poor historian. No complaints of abdominal pain. No nausea vomiting. No hematemesis. Patient received 1 unit of PRBC and hemoglobin improved to 6.8 today. Laboratory data showed liver functions within normal limits. Not coagulopathic. EKG showed normal sinus rhythm 09/27/2020 Patient is currently resting in the bed comfortably. Awake alert but patient is having bizarre behavior. Psychiatry is following. Otherwise hemoglobin level is 8.1 today. Patient refused to get EGD. No complaints of chest pain or shortness of the. No nausea vomiting. Denied any dark-colored stooltoday. 09/28/2020 Patient's hemoglobin remained stable no more evidence of any GI bleed at this time patient is awaiting endoscopy. Patient appears to have advanced dementia. Patient is alert and oriented 1. Social workers addressing the placement issues. Patient blood pressure started going up patient was started on low-dose of losartan Constitutional: Denied any fatigue denied any fever. Cardio vascular: denied any chest pain, palpitations Gastrointestinal denied any nausea vomiting Pulmonary: Denied any shortness of breath cough Neurologic denied any new focal deficits All inpatient medications were reviewed and appropriate changes in these medications as dictated in the interval history and assessment and plan. Objective - Vital Signs Vital signs: Vital Signs Temp 98.0 F 09/28/20 08:00 Pulse 83 09/28/20 08:00 Resp 16 09/28/20 08:00 BP 162/90 09/28/20 08:00 Pulse Ox 94 L 09/28/20 08:00 Intake & Output 09/27/20 09/28/20 09/28/20 18:59 06:59 18:59 Intake Total 540 Balance 540 Intake: Oral 540 Other: # Voids 3 3 - Exam PHYSICAL EXAMINATION: Patient is lying in the bed comfortably, no acute distress, awake alert and not oriented.. HEENT: Normocephalic. Neck is supple. Pupils reactive. Nostrils clear. Oral cavity is moist. Ears reveal no drainage. Neck reveals no JVD, carotid bruits, or thyromegaly. CHEST EXAMINATION: Trachea is central. Symmetrical expansion. Lung davila clear to auscultation and percussion. CARDIAC: Normal S1, S2 with no gallops. No murmurs ABDOMEN: Soft. Bowel sounds normal. No organomegaly. No abdominal bruits. Extremities: reveal no edema. No clubbing or cyanosis Neurologically awake, alert, oriented x1 with well-coordinated movements. No focal deficits noted Skin: No rash or skin lesions. Psychiatric: Coperative. Bizarre behavior Musculoskeletal: No joint swelling or deformity. Normal range of motion. - Labs CBC & Chem 7: 09/28/20 05:58 09/28/20 05:58 Labs: Abnormal Lab Results - Last 24 Hours (Table) 09/28/20 09/28/20 Range/Units 05:58 05:58 RBC 2.87 L (4.10-5.20) X 10*6/uL Hgb 8.3 L (12.0-15.0) g/dL Hct 25.3 L (37.2-46.3) % Eosinophils # 0.44 H (0.04-0.35) X 10*3/uL Calcium 8.5 L (8.7-10.3) mg/dL Assessment and Plan Plan: Acute blood loss anemia secondary to upper GI bleed with melanotic stools. Hemoglobin was 5.5 on admission, presently 8.8 patient received a around clearance of PRBC transfusion will undergo endoscopy. -Acute renal failure: Prerenal azotemia from GI bleed improved after IV hydration Hypertension: Patient's angiotensin receptor enrrique will be started back blood pressure started going Dementia: Admit appears to be advanced may be vascular dementia Schizophrenia Plan: Patient will be continued on IV hydration and PPI. Monitor H&H. Patient will need endoscopy but refusing. Psychiatry was consulted due to bizarre behavior and schizophrenia.
[2020-09-28] MEDS: LOSARTAN 50 MG TAB PO SCH (14:05)
--- NOTE | 2020-09-28 15:34 | P.PN ---
Subjective Progress Note Date: 09/28/20 Principal diagnosis: Severe symptomatic anemia Patient is a pleasant 1-year-old female who came to the hospital with severe symptomatic anemia with a hemoglobin of 5.6 requiring 2 units of PRBC transfusion. His hemoglobin is 8.3. She is denying any abdominal pain, nausea, or vomiting. She denies any blood in her stool or black tarry stools through the night. She was scheduled for an EGD and colonoscopy, however failed to finish her prep. Objective - Vital Signs Vital signs: Vital Signs Temp 98.0 F 09/28/20 08:00 Pulse 83 09/28/20 08:00 Resp 16 09/28/20 08:00 BP 162/90 09/28/20 08:00 Pulse Ox 94 L 09/28/20 08:00 Intake & Output 09/27/20 09/28/20 09/28/20 18:59 06:59 18:59 Intake Total 540 Balance 540 Intake: Oral 540 Other: # Voids 3 3 - Exam General appearance: The patient is alert, oriented, appears in no acute distress. HET: Head is normocephalic and atraumatic. Conjunctiva pink. Sclera anicteric. Neck: Supple without lymphadenopathy. Abdomen: Soft, nontender, nondistended with bowel sounds. No guarding or rigidity. Extremities: Normal skin color and turgor. No pedal edema Skin: No rashes, no jaundice Neurological: No focal deficits. Alert and oriented 3. - Labs CBC & Chem 7: 09/28/20 05:58 09/28/20 05:58 Labs: Abnormal Lab Results - Last 24 Hours (Table) 09/28/20 09/28/20 Range/Units 05:58 05:58 RBC 2.87 L (4.10-5.20) X 10*6/uL Hgb 8.3 L (12.0-15.0) g/dL Hct 25.3 L (37.2-46.3) % Eosinophils # 0.44 H (0.04-0.35) X 10*3/uL Calcium 8.5 L (8.7-10.3) mg/dL Assessment and Plan Assessment: 1. Severe symptomatic anemia with initial hemoglobin of 5.5 requiring 2 units of PRBC transfusion. Today's hemoglobin stable at 8.3. She's had a few episodes of black tarry stools prior to her hospitalization. Most likely dealing with an upper GI source of bleeding possibly a colonic source cannot be excluded. Patient is currently hemodynamically stable. 2. History of dementia 3. Altered mental status Plan: 1. Continue clear liquid diet, nothing by mouth after midnight 2. Continue with Protonix 40 mg daily 3. Monitor CBC daily 4. EGD colonoscopy scheduled for tomorrow 5. Complete bowel prep To further discuss consultation we will continue to follow Dr. Michell Roth I agree with the dictator's note, documented as a scribe by Birdie GEORGE .
[2020-09-29] MEDS ORDERED: LOSARTAN 50 MG TAB PO SCH (09:00)
[2020-09-29] MEDS: PANTOPRAZOLE 40 MG/10 ML VIAL IV SCH (09:45)
[2020-09-29] MEDS: MEMANTINE 5 MG TAB PO SCH (09:46)
[2020-09-29] MEDS: DONEPEZIL 5 MG TAB PO SCH (09:46)
[2020-09-29] MEDS: LOSARTAN 50 MG TAB PO SCH (09:46)
[2020-09-29 11:48] LABS: HCT 24.3 % (37.2-46.3); HGB 7.5 g/dL (12.0-15.0); MCH 28.5 pg (27.0-32.0); MCHC 30.9 g/dL (32.0-37.0); MCV 92.4 fL (80.0-97.0); Mean Platelet Volume 10.3 fL (9.5-12.2); Platelet Count 402 X 10*3/uL (140-440); RBC 2.63 X 10*6/uL (4.10-5.20); RDW 14.7 % (11.5-14.5); WBC 6.48 X 10*3/uL (4.50-10.00)
[2020-09-29] MEDS ORDERED: LIDOCAINE 1% INJ 10MG/ML (20 ML MDV) ONE (13:25)
[2020-09-29] MEDS ORDERED: PROPOFOL 10 MG/ML 20 ML VIAL IV ONE (13:25)
[2020-09-29] MEDS ORDERED: SODIUM CHLORIDE 0.9% 500 ML 500 ML IV ONE ×2 (13:41)
--- NOTE | 2020-09-29 14:07 | P.PCN ---
Date of Procedure: 09/29/20 Procedure(s) Performed: Brief history: Patient is a pleasant 80-year-old white female admitted hospital with a hemoglobin of 5.8 g/dL requiring 3 units of PRBC transition. She was having some darker stools. She is hence scheduled for an upper endoscopy as well as colonoscopy to evaluate further. Procedure performed: Esophagogastroduodenoscopy Colonoscopy with snare polypectomy Preoperative diagnosis: severe symptomatic anemia and dark colored stools Anesthesia: [facility] [place] Procedure: After informed consent was obtained from the patient was brought into the endoscopy unit and IV sedation was administered by anesthesia under continuous monitoring. Initially upper endoscopy was done. The Olympus GF 160 video endoscope was inserted inserted into the mouth and esophagus intubated without any difficulty and was gradually advanced into the stomach and duodenum and carefully examined. The bulb and second part of the duodenum appeared normal. The scope was then withdrawn into the stomach adequately insufflated with air and upon careful examination the antrum and body, cardia and fundus appeared normal. The scope was then withdrawn into the esophagus. . Size hiatal hernia noted. The GE junction was located at 35 cm to the incisors. There was early distal esophageal stricture with multiple linear erosions or ulcerations in the distal esophagus consistent with LA grade C reflux esophagitis. . Rest of the esophagus appeared normal. Patient tolerated the procedure well. At this time the patient continued to remain sedation. Initial digital rectal examination was normal. Olympus CF 160 video colonoscope was then inserted into the rectum and gradually advanced to the cecum without any difficulty. Careful examination was performed as the scope was gradually being withdrawn. The prep was excellent. The cecum, ascending colon, transverse colon, descending colon, sigmoid colon and rectum appeared normal. Retroflexion was performed in the rectum and no lesions were noted. Patient tolerated the procedure well. Impression: 1 Upper endoscopy revealed moderate size hiatal hernia and early distal esophageal stricture with multiple linear ulcerations and erosions consistent with LA grade C reflux esophagitis 2. Colonoscopy revealed 1 cm distal rectal polyp status post-polypectomy Recommendations: Findings of this examination were discussed with the patient as well as her family. Diet will be advanced as tolerated. Continue Protonix 40 mg twice daily
--- NOTE | 2020-09-29 15:19 | P.DS ---
Providers Date of admission: 09/25/20 19:19 Attending physician: Steven Agudelo Consults: 09/25/20 17:58 Consult Physician Routine Consulting Provider: Vikas Martinez Consult Reason/Comments: Altered mental status; Paranoia; Bizarre behavior; Petitioned Do you want consulting provider notified?: Yes Consult Physician Routine Consulting Provider: Cris Roth Consult Reason/Comments: Upper GI bleed Do you want consulting provider notified?: Yes 09/25/20 19:19 Consult Physician Routine Consulting Provider: Tylor Thakkar Consult Reason/Comments: icu patient Do you want consulting provider notified?: Already Contacted Primary care physician: Stated None Hospital Course: 80-year-old female with a known history of hypertension, dementia presents to ER due to altered mental status. Patient also has psychiatric illness and bizarre behavior, paranoid schizophrenia. Patient was found to have hemoglobin level of 5.5 and FOBT positive. Patient did have dark tarry stool while in the hospital and was admitted to the hospital. Patient otherwise is a poor historian. No complaints of abdominal pain. No nausea vomiting. No hematemesis. Patient received 1 unit of PRBC and hemoglobin improved to 6.8 today. Laboratory data showed liver functions within normal limits. Not coagulopathic. EKG showed normal sinus rhythm 09/27/2020 Patient is currently resting in the bed comfortably. Awake alert but patient is having bizarre behavior. Psychiatry is following. Otherwise hemoglobin level is 8.1 today. Patient refused to get EGD. No complaints of chest pain or shortness of the. No nausea vomiting. Denied any dark-colored stooltoday. 09/28/2020 Patient's hemoglobin remained stable no more evidence of any GI bleed at this time patient is awaiting endoscopy. Patient appears to have advanced dementia. Patient is alert and oriented 1. Social workers addressing the placement issues. Patient blood pressure started going up patient was started on low-dose of losartan 09/29/2020 Patient upper GI endoscopy showed showed severe esophagitis with mucosal ulcerations because of which gastric body is recommending 40 mg twice a day of Protonix for 2 months. Patient underwent colonoscopy as well and had a polypectomy. Patient doesn't have any evidence of acute GI bleed at this time. Patient was evaluated by physical therapy and occupational therapy the recommending home patient will be discharged home with home care. PHYSICAL EXAMINATION: Patient is lying in the bed comfortably, no acute distress, awake alert and not orientedx2. HEENT: Normocephalic. Neck is supple. Pupils reactive. Nostrils clear. Oral cavity is moist. Ears reveal no drainage. Neck reveals no JVD, carotid bruits, or thyromegaly. CHEST EXAMINATION: Trachea is central. Symmetrical expansion. Lung davila clear to auscultation and percussion. CARDIAC: Normal S1, S2 with no gallops. No murmurs ABDOMEN: Soft. Bowel sounds normal. No organomegaly. No abdominal bruits. Extremities: reveal no edema. No clubbing or cyanosis Neurologically awake, alert, oriented x1 with well-coordinated movements. No focal deficits noted Skin: No rash or skin lesions. Psychiatric: Coperative Musculoskeletal: No joint swelling or deformity. Normal range of motion. Assessment and Plan Plan: Acute blood loss anemia secondary to upper GI bleed with melanotic stools. Hemoglobin was 5.5 on admission, presently around 7.8 may need iron supplementation which need to be done as an outpatient. -Acute renal failure: Prerenal azotemia from GI bleed improved after IV h ydration Hypertension: She does not requiring all her 3 antiplatelet medications patient is only requiring 50 mg of her losartan at this time. Dementia: appears to be advanced may be vascular dementia Schizophrenia Patient Condition at Discharge: Serious Plan - Discharge Summary Discharge Rx Participant: Yes New Discharge Prescriptions: New Losartan [Cozaar] 50 mg PO DAILY #30 tab Pantoprazole Sodium [Protonix] 40 mg PO BID #120 tablet. QUEtiapine [SEROquel] 25 mg PO DAILY PRN tab PRN Reason: Agitation Continue Memantine [Namenda] 5 mg PO BID Donepezil [Aricept] 5 mg PO DAILY Discontinued hydroCHLOROthiazide [Hydrodiuril] 25 mg PO DAILY amLODIPine [Norvasc] 5 mg PO DAILY QUEtiapine [SEROquel] 25 mg PO DAILY Valsartan [Diovan] 40 mg PO DAILY Discharge Medication List Donepezil [Aricept] 5 mg PO DAILY 09/25/20 [History] Memantine [Namenda] 5 mg PO BID 09/25/20 [History] Losartan [Cozaar] 50 mg PO DAILY #30 tab 09/29/20 [Rx] Pantoprazole Sodium [Protonix] 40 mg PO BID #120 tablet. 09/29/20 [Rx] QUEtiapine [SEROquel] 25 mg PO DAILY PRN tab 09/29/20 [Rx] Follow up Appointment(s)/Referral(s): Vikas Yoder MD [STAFF PHYSICIAN] - 3 Days Activity/Diet/Wound Care/Special Instructions: Home meds in pharmacy Discharge Disposition: HOME SELF-CARE
[2020-09-29 15:24] VITALS: BP 149/75; PULSE 61; RESP 16; TEMP 97.9
== END 2020-09-29 18:17 | disposition home health service (06) | DRG 381 ==
LOC: EC 15:48 → 2SICU 19:19 → 4SSUR 09-26 21:38
PROVIDERS: ADMIT Hospitalist; ATTEND Hospitalist
PROC: 0DJ08ZZ Inspection of Upper Intestinal Tract, Via Natural or Artificial Opening Endoscopic (ICD-10-PCS; principal; 2020-09-29 12:00)
PROC: 0DBP8ZZ Excision of Rectum, Via Natural or Artificial Opening Endoscopic (ICD-10-PCS; principal; 2020-09-29 12:00)
PROC: 30233N1 Transfusion of Nonautologous Red Blood Cells into Peripheral Vein, Percutaneous Approach (ICD-10-PCS; 2020-09-29 12:00)
DX: K22.11 Ulcer of esophagus with bleeding (principal); D62 Acute posthemorrhagic anemia; F20.0 Paranoid schizophrenia; N17.9 Acute kidney failure, unspecified; F03.90 Unspecified dementia, unspecified severity, without behavioral disturbance, psychotic disturbance, mood disturbance, and anxiety; Z20.822 Contact with and (suspected) exposure to COVID-19; F32.9 Major depressive disorder, single episode, unspecified; I10 Essential (primary) hypertension; K21.00 Gastro-esophageal reflux disease with esophagitis, without bleeding; K62.1 Rectal polyp; K22.2 Esophageal obstruction; K44.9 Diaphragmatic hernia without obstruction or gangrene; Z79.899 Other long term (current) drug therapy
CPT/HCPCS: 36415; 36430; 43235; 45385; 80048; 80053; 80306; 81001; 82272; 84484; 85025; 85027; 85610; 85730; 86850; 86900; 86901; 86920; 87635; 88305; 93005; 96374; 99285

== ENCOUNTER 2020-10-07 10:04 | Emergency (ER) | payer MEDICARE, OTHER ==
[2020-10-07] MEDS ORDERED: SODIUM CHLORIDE 0.9% 1,000 ML IV STA (11:05)
--- NOTE | 2020-10-07 11:10 | ED ---
General Adult HPI - General Chief complaint: Weakness Stated complaint: Weakness, Falling Time Seen by Provider: 10/07/20 10:25 Source: patient Mode of arrival: ambulatory Limitations: no limitations - History of Present Illness Initial comments: Dictation was produced using [employer] dictation software. please excuse any grammatical, word or spelling errors. This patient was cared for during a federal and state declared state of emergency secondary to Covid 19 Chief Complaint: 80-year-old female recently admitted to the hospital for anemia presents to the emergency department for weakness. History of Present Illness: Patient is a 80-year-old female she was admitted to the hospital on 05/25/2021. She was admitted at that time for anemia. Patient was admitted to the hospital she was evaluated by multiple specialists. She was found to have a hemoglobin of 5.5 with a positive stool call blood. She had a colonoscopy and EGD that showed esophagitis and ulcerations at the esophagus. Patient has been recovering at her son's house. Since yesterday she's been progressively weaker. She denies any dark stools. She's been taking her medications as prescribed. Patient has any focal weakness. She denies any noticing paresthesias. No pain. At rest she feels well. Son reports that patient became significantly weak when patient tried to wash dishes The ROS documented in this emergency department record has been reviewed and confirmed by me. Those systems with pertinent positive or negative responses have been documented in the HPI. All other systems are other negative and/or noncontributory. PHYSICAL EXAM: General Impression: Alert and oriented x3, not in acute distress HEENT: Normocephalic atraumatic, extra-ocular movements intact, pupils equal and reactive to light bilaterally, mucous membranes moist. Cardiovascular: Heart regular rate and rhythm Chest: Able to complete full sentences, no retractions, no tachypnea Abdomen: abdomen soft, non-tender, non-distended, no organomegaly Musculoskeletal: Pulses present and equal in all extremities, no peripheral edema Motor: no focal deficits noted Neurological: CN II-XII grossly intact, no focal motor or sensory deficits noted Skin: Intact with no visualized rashes Psych: Normal affect and mood Rectal exam: Patient refused ED course: 80-year-old female recently admitted for anemia presents to the emergency department for progressive weakness since being discharge 8 days ago. Vital signs upon arrival shows blood pressure of 90/60, worse vital signs within acceptable limits. Patient has history of hypertensionj. Laboratory evaluation obtained. Hemoglobin stable. Coag panel is negative. Metabolic panel shows some mild dehydration. Urinalysis negative. So, blood is negative. Patient observed in the emergency department feeling much better after administration of IV fluids. Patient is agreeable for discharge. Patient told to increase her hydration at home.Patient reevaluated after 3 hour observation emergency room with stable medical condition. She feels better. Last follow-up with primary care physician upon discharge. EKG interpretation: Ventricular rate 54, sinus bradycardia, MO interval 170, QRS 86, QTC 434. No MO prolongation, no QTC prolongation, no ST or T-wave changes noted. EKG compared to 09/25/2020 showing no changes. Overall, this EKG is unremarkable - Related Data Home Medications Medication Instructions Recorded Confirmed Donepezil [Aricept] 5 mg PO DAILY 09/25/20 09/25/20 Memantine [Namenda] 5 mg PO BID 09/25/20 09/25/20 Previous Rx's Medication Instructions Recorded Losartan [Cozaar] 50 mg PO DAILY #30 tab 09/29/20 Pantoprazole Sodium [Protonix] 40 mg PO BID #120 tablet. 09/29/20 QUEtiapine [SEROquel] 25 mg PO DAILY PRN tab 09/29/20 Allergies Allergy/AdvReac Type Severity Reaction Status Date / Time No Known Allergies Allergy Verified 10/07/20 10:13 Review of Systems ROS Statement: Those systems with pertinent positive or pertinent negative responses have been documented in the HPI. ROS Other: All systems not noted in ROS Statement are negative. Past Medical History Past Medical History: Hypertension Additional Past Medical History / Comment(s): Dementia, anemia History of Any Multi-Drug Resistant Organisms: None Reported Past Surgical History: No Surgical Hx Reported Past Anesthesia/Blood Transfusion Reactions: No Reported Reaction Past Psychological History: No Psychological Hx Reported Smoking Status: Never smoker Past Alcohol Use History: Occasional Past Drug Use History: None Reported General Exam Limitations: no limitations Course Vital Signs 10/07/20 10/07/20 10/07/20 10:13 11:30 12:00 Temperature 97.8 F Pulse Rate 61 55 L 60 Respiratory 18 15 16 Rate Blood Pressure 90/60 119/67 119/67 O2 Sat by Pulse 98 100 99 Oximetry 10/07/20 13:00 Temperature Pulse Rate 53 L Respiratory 16 Rate Blood Pressure 159/76 O2 Sat by Pulse 100 Oximetry Medical Decision Making - Lab Data Result diagrams: 10/07/20 11:06 10/07/20 11:06 Lab Results 10/07/20 10/07/20 10/07/20 Range/Units 11:06 11:06 11:06 WBC 5.0 (3.8-10.6) k/uL RBC 3.21 L (3.80-5.40) m/uL Hgb 8.9 L (11.4-16.0) gm/dL Hct 27.6 L (34.0-46.0) % MCV 86.0 (80.0-100.0) fL MCH 27.9 (25.0-35.0) pg MCHC 32.4 (31.0-37.0) g/dL RDW 14.1 (11.5-15.5) % Plt Count 441 (150-450) k/uL MPV 7.7 Neutrophils % 59 % Lymphocytes % 26 % Monocytes % 8 % Eosinophils % 5 % Basophils % 1 % Neutrophils # 2.9 (1.3-7.7) k/uL Lymphocytes # 1.3 (1.0-4.8) k/uL Monocytes # 0.4 (0-1.0) k/uL Eosinophils # 0.2 (0-0.7) k/uL Basophils # 0.1 (0-0.2) k/uL Hypochromasia Moderate Poikilocytosis Slight PT 10.3 (9.0-12.0) sec INR 1.0 (<1.2) APTT 22.9 (22.0-30.0) sec Sodium 138 (137-145) mmol/L Potassium 4.1 (3.5-5.1) mmol/L Chloride 105 (98-107) mmol/L Carbon Dioxide 22 (22-30) mmol/L Anion Gap 11 mmol/L BUN 25 H (7-17) mg/dL Creatinine 1.30 H (0.52-1.04) mg/dL Est GFR (CKD-EPI)AfAm 45 (>60 ml/min/1.73 sqM) Est GFR (CKD-EPI)NonAf 39 (>60 ml/min/1.73 sqM) Glucose 103 H (74-99) mg/dL Plasma Lactic Acid Thony (0.7-2.0) mmol/L Calcium 8.9 (8.4-10.2) mg/dL Magnesium 1.9 (1.6-2.3) mg/dL Total Bilirubin 0.4 (0.2-1.3) mg/dL AST 21 (14-36) U/L ALT 12 (4-34) U/L Alkaline Phosphatase 66 (38-126) U/L Troponin I (0.000-0.034) ng/mL Total Protein 6.5 (6.3-8.2) g/dL Albumin 3.9 (3.5-5.0) g/dL Urine Color Urine Appearance (Clear) Urine pH (5.0-8.0) Ur Specific [place] (1.001-1.035) Urine Protein (Negative) Urine Glucose (UA) (Negative) Urine Ketones (Negative) Urine Blood (Negative) Urine Nitrite (Negative) Urine Bilirubin (Negative) Urine Urobilinogen (<2.0) mg/dL Ur Leukocyte Esterase (Negative) Stool Occult Blood (Negative) 10/07/20 10/07/20 10/07/20 Range/Units 11:06 11:06 11:16 WBC (3.8-10.6) k/uL RBC (3.80-5.40) m/uL Hgb (11.4-16.0) gm/dL Hct (34.0-46.0) % MCV (80.0-100.0) fL MCH (25.0-35.0) pg MCHC (31.0-37.0) g/dL RDW (11.5-15.5) % Plt Count (150-450) k/uL MPV Neutrophils % % Lymphocytes % % Monocytes % % Eosinophils % % Basophils % % Neutrophils # (1.3-7.7) k/uL Lymphocytes # (1.0-4.8) k/uL Monocytes # (0-1.0) k/uL Eosinophils # (0-0.7) k/uL Basophils # (0-0.2) k/uL Hypochromasia Poikilocytosis PT (9.0-12.0) sec INR (<1.2) APTT (22.0-30.0) sec Sodium (137-145) mmol/L Potassium (3.5-5.1) mmol/L Chloride (98-107) mmol/L Carbon Dioxide (22-30) mmol/L Anion Gap mmol/L BUN (7-17) mg/dL Creatinine (0.52-1.04) mg/dL Est GFR (CKD-EPI)AfAm (>60 ml/min/1.73 sqM) Est GFR (CKD-EPI)NonAf (>60 ml/min/1.73 sqM) Glucose (74-99) mg/dL Plasma Lactic Acid Thony 1.5 (0.7-2.0) mmol/L Calcium (8.4-10.2) mg/dL Magnesium (1.6-2.3) mg/dL Total Bilirubin (0.2-1.3) mg/dL AST (14-36) U/L ALT (4-34) U/L Alkaline Phosphatase (38-126) U/L Troponin I <0.012 (0.000-0.034) ng/mL Total Protein (6.3-8.2) g/dL Albumin (3.5-5.0) g/dL Urine Color Urine Appearance (Clear) Urine pH (5.0-8.0) Ur Specific [place] (1.001-1.035) Urine Protein (Negative) Urine Glucose (UA) (Negative) Urine Ketones (Negative) Urine Blood (Negative) Urine Nitrite (Negative) Urine Bilirubin (Negative) Urine Urobilinogen (<2.0) mg/dL Ur Leukocyte Esterase (Negative) Stool Occult Blood Negative (Negative) 10/07/20 Range/Units 12:25 WBC (3.8-10.6) k/uL RBC (3.80-5.40) m/uL Hgb (11.4-16.0) gm/dL Hct (34.0-46.0) % MCV (80.0-100.0) fL MCH (25.0-35.0) pg MCHC (31.0-37.0) g/dL RDW (11.5-15.5) % Plt Count (150-450) k/uL MPV Neutrophils % % Lymphocytes % % Monocytes % % Eosinophils % % Basophils % % Neutrophils # (1.3-7.7) k/uL Lymphocytes # (1.0-4.8) k/uL Monocytes # (0-1.0) k/uL Eosinophils # (0-0.7) k/uL Basophils # (0-0.2) k/uL Hypochromasia Poikilocytosis PT (9.0-12.0) sec INR (<1.2) APTT (22.0-30.0) sec Sodium (137-145) mmol/L Potassium (3.5-5.1) mmol/L Chloride (98-107) mmol/L Carbon Dioxide (22-30) mmol/L Anion Gap mmol/L BUN (7-17) mg/dL Creatinine (0.52-1.04) mg/dL Est GFR (CKD-EPI)AfAm (>60 ml/min/1.73 sqM) Est GFR (CKD-EPI)NonAf (>60 ml/min/1.73 sqM) Glucose (74-99) mg/dL Plasma Lactic Acid Thony (0.7-2.0) mmol/L Calcium (8.4-10.2) mg/dL Magnesium (1.6-2.3) mg/dL Total Bilirubin (0.2-1.3) mg/dL AST (14-36) U/L ALT (4-34) U/L Alkaline Phosphatase (38-126) U/L Troponin I (0.000-0.034) ng/mL Total Protein (6.3-8.2) g/dL Albumin (3.5-5.0) g/dL Urine Color Colorless Urine Appearance Clear (Clear) Urine pH 6.5 (5.0-8.0) Ur Specific [place] 1.004 (1.001-1.035) Urine Protein Negative (Negative) Urine Glucose (UA) Negative (Negative) Urine Ketones Negative (Negative) Urine Blood Negative (Negative) Urine Nitrite Negative (Negative) Urine Bilirubin Negative (Negative) Urine Urobilinogen <2.0 (<2.0) mg/dL Ur Leukocyte Esterase Negative (Negative) Stool Occult Blood (Negative) Disposition Clinical Impression: Dehydration, Weakness Disposition: HOME SELF-CARE Condition: Good Instructions (If sedation given, give patient instructions): Dehydration (ED) Is patient prescribed a controlled substance at d/c from ED?: No Referrals: Vikas Yoder MD [Primary Care Provider] - 1-2 days Time of Disposition: 13:27
[2020-10-07 11:27] LABS: Basophils # (A) 0.1 k/uL (0-0.2); Basophils % (A) 1 %; Eosinophils # (A) 0.2 k/uL (0-0.7); Eosinophils % (A) 5 %; HCT 27.6 % (34.0-46.0); HGB 8.9 gm/dL (11.4-16.0); Hypochromasia Moderate; Lymphocytes # (A) 1.3 k/uL (1.0-4.8); Lymphocytes % (A) 26 %; MCH 27.9 pg (25.0-35.0); MCHC 32.4 g/dL (31.0-37.0); Mean Platelet Volume 7.7; Monocytes # (A) 0.4 k/uL (0-1.0); Monocytes % (A) 8 %; Neutrophils # (A) 2.9 k/uL (1.3-7.7); Neutrophils % (A) 59 %; Platelet Count 441 k/uL (150-450); Poikilocytosis Slight; RBC 3.21 m/uL (3.80-5.40); RDW 14.1 % (11.5-15.5)
[2020-10-07 11:40] LABS: Albumin 3.9 g/dL (3.5-5.0); Calcium 8.9 mg/dL (8.4-10.2); Magnesium 1.9 mg/dL (1.6-2.3); Potassium 4.1 mmol/L (3.5-5.1); Total Bilirubin 0.4 mg/dL (0.2-1.3); Total Protein 6.5 g/dL (6.3-8.2)
[2020-10-07 11:46] LABS: Partial Thromboplastin Time 22.9 sec (22.0-30.0); Prothrombin Time 10.3 sec (9.0-12.0)
[2020-10-07 12:18] VITALS: RESP 16
[2020-10-07 12:53] LABS: Appearance,Urine Clear (Clear); Bilirubin,Urine Negative (Negative); Blood,Urine Negative (Negative); Color,Urine Colorless; Glucose,Urine (UA) Negative (Negative); Ketones,Urine Negative (Negative); Leukocyte Esterase,Urine Negative (Negative); Nitrite,Urine Negative (Negative); PH, Urine 6.5 (5.0-8.0); Protein,Urine Negative (Negative); Specific Gravity,Urine 1.004 (1.001-1.035); Urobilinogen,Urine <2.0 mg/dL (<2.0)
[2020-10-07 14:30] VITALS: BP 155/79; PULSE 89; TEMP 98.5
== END 2020-10-07 14:28 | disposition home or self-care (01) ==
LOC: EC 10:04
DX: R53.1 Weakness (principal); E86.0 Dehydration; R00.1 Bradycardia, unspecified; D64.9 Anemia, unspecified; Z79.899 Other long term (current) drug therapy
CPT/HCPCS: 36415; 80053; 81003; 82272; 83605; 83735; 84484; 85025; 85610; 85730; 93005; 96360; 99285

== ENCOUNTER 2021-07-01 12:02 | Inpatient (IN) | payer MEDICARE, OTHER ==
[2021-07-01] MEDS ORDERED: SODIUM CHLORIDE 0.9% 500 ML 500 ML IV ONE (12:38)
[2021-07-01] MEDS ORDERED: hydrALAZINE HCL 20 MG/ML 1 ML VIAL IVP STA (12:44)
--- NOTE | 2021-07-01 12:44 | ED ---
General Adult HPI - General Chief complaint: Recheck/Abnormal Lab/Rx Stated complaint: AMS Time Seen by Provider: 07/01/21 12:10 Source: patient, EMS, RN notes reviewed, old records reviewed Mode of arrival: EMS - History of Present Illness Initial comments: This is an 81-year-old female who is brought in by EMS. Son was with the patient son states that the patient was brought in because she is refusing to take her medicines and her blood pressure is elevated and he cannot get her to take any medications. Patient denies any problems but she is severely demented according to the son she has had dementia and paranoia for 2 years but is getting progressively worse to the point where last night she was up all night thinking someone was trying to break into the house. Son states he believes that she is paranoid of the medications and does not want to take some. Son sta francy she's not had a fever recently is been no difficulty breathing or chest pain. There is been no abdominal pain or nausea vomiting diarrhea. - Related Data Home Medications Medication Instructions Recorded Confirmed Memantine [Namenda] 10 mg PO BID 09/25/20 07/01/21 Ferrous Sulfate [Feosol] 325 mg PO DAILY 07/01/21 07/01/21 QUEtiapine [SEROquel] 25 mg PO HS 07/01/21 07/01/21 Previous Rx's Medication Instructions Recorded Losartan [Cozaar] 50 mg PO DAILY #30 tab 09/29/20 Pantoprazole Sodium [Protonix] 40 mg PO BID #120 tablet. 09/29/20 Allergies Allergy/AdvReac Type Severity Reaction Status Date / Time No Known Allergies Allergy Verified 07/01/21 13:07 Review of Systems ROS Statement: Those systems with pertinent positive or pertinent negative responses have been documented in the HPI. ROS Other: All systems not noted in ROS Statement are negative. Past Medical History Past Medical History: Hypertension Additional Past Medical History / Comment(s): Dementia, anemia History of Any Multi-Drug Resistant Organisms: None Reported Past Surgical History: No Surgical Hx Reported Past Anesthesia/Blood Transfusion Reactions: No Reported Reaction Past Psychological History: No Psychological Hx Reported Smoking Status: Never smoker Past Alcohol Use History: Occasional Past Drug Use History: None Reported General Exam - General Exam Comments Initial Comments: GENERAL: Patient is well-developed and well-nourished. Patient is nontoxic and well- hydrated and is in no acute distress. ENT: Neck is soft and supple. No significant lymphadenopathy is noted. Oropharynx is clear. Moist mucous membranes. Neck has full range of motion without eliciting any pain. EYES: The sclera were anicteric and conjunctiva were pink and moist. Extraocular movements were intact and pupils were equal round and reactive to light. Eyelids were unremarkable. PULMONARY: Unlabored respirations. Good breath sounds bilaterally. No audible rales rhonchi or wheezing was noted. CARDIOVASCULAR: There is a regular rate and rhythm without any murmurs gallops or rubs. ABDOMEN: Soft and nontender with normal bowel sounds. SKIN: Skin is clear with no lesions or rashes and otherwise unremarkable. NEUROLOGIC: Patient is alert and oriented 1 which son states is normal. Cranial nerves II through XII are grossly intact. Motor and sensory are also intact. Normal speech, volume and content. Symmetrical smile. MUSCULOSKELETAL: Normal extremities with adequate strength and full range of motion. LYMPHATICS: No significant lymphadenopathy is noted PSYCHIATRIC: Normal psychiatric evaluation. Course Vital Signs 07/01/21 07/01/21 12:07 13:49 Temperature 98.2 F Pulse Rate 60 58 L Respiratory 18 18 Rate Blood Pressure 212/92 184/70 O2 Sat by Pulse 97 99 Oximetry Medical Decision Making - Medical Decision Making EKG shows sinus rhythm with occasional PVC at 60 bpm IL interval 154 QRS is 90 QT interval is 450 QTC is 450. Patient's EKG shows no ST segment elevation or depression. Son was consistent that he could not take care of the patient and her altered mental status continues to progress. I spoke with Dr. Yoder he agreed to admit the patient admitted the patient I consult the psych and I wrote admitting orders Patient received hydralazine emergency department but her blood pressure down nicely - Lab Data Result diagrams: 07/01/21 13:01 07/01/21 13:01 Lab Results 07/01/21 07/01/21 07/01/21 Range/Units 13: 13: 13:01 WBC 8.0 (3.8-10.6) k/uL RBC 4.58 (3.80-5.40) m/uL Hgb 14.0 (11.4-16.0) gm/dL Hct 42.6 (34.0-46.0) % MCV 93.0 (80.0-100.0) fL MCH 30.6 (25.0-35.0) pg MCHC 32.9 (31.0-37.0) g/dL RDW 12.7 (11.5-15.5) % Plt Count 249 (150-450) k/uL MPV 8.5 Neutrophils % 78 % Lymphocytes % 13 % Monocytes % 6 % Eosinophils % 1 % Basophils % 1 % Neutrophils # 6.2 (1.3-7.7) k/uL Lymphocytes # 1.0 (1.0-4.8) k/uL Monocytes # 0.5 (0-1.0) k/uL Eosinophils # 0.1 (0-0.7) k/uL Basophils # 0.1 (0-0.2) k/uL PT 10.4 (9.0-12.0) sec INR 1.0 (<1.2) APTT 23.2 (22.0-30.0) sec Sodium (137-145) mmol/L Potassium (3.5-5.1) mmol/L Chloride (98-107) mmol/L Carbon Dioxide (22-30) mmol/L Anion Gap mmol/L BUN (7-17) mg/dL Creatinine (0.52-1.04) mg/dL Est GFR (CKD-EPI)AfAm (>60 ml/min/1.73 sqM) Est GFR (CKD-EPI)NonAf (>60 ml/min/1.73 sqM) Glucose (74-99) mg/dL Calcium (8.4-10.2) mg/dL Total Bilirubin (0.2-1.3) mg/dL AST (14-36) U/L ALT (4-34) U/L Alkaline Phosphatase (38-126) U/L Troponin I (0.000-0.034) ng/mL Total Protein (6.3-8.2) g/dL Albumin (3.5-5.0) g/dL Urine Color Yellow Urine Appearance Clear (Clear) Urine pH 5.5 (5.0-8.0) Ur Specific [place] 1.020 (1.001-1.035) Urine Protein Trace H (Negative) Urine Glucose (UA) Negative (Negative) Urine Ketones Negative (Negative) Urine Blood Negative (Negative) Urine Nitrite Negative (Negative) Urine Bilirubin Negative (Negative) Urine Urobilinogen <2.0 (<2.0) mg/dL Ur Leukocyte Esterase Negative (Negative) 07/01/21 07/01/21 Range/Units 13:01 13:01 WBC (3.8-10.6) k/uL RBC (3.80-5.40) m/uL Hgb (11.4-16.0) gm/dL Hct (34.0-46.0) % MCV (80.0-100.0) fL MCH (25.0-35.0) pg MCHC (31.0-37.0) g/dL RDW (11.5-15.5) % Plt Count (150-450) k/uL MPV Neutrophils % % Lymphocytes % % Monocytes % % Eosinophils % % Basophils % % Neutrophils # (1.3-7.7) k/uL Lymphocytes # (1.0-4.8) k/uL Monocytes # (0-1.0) k/uL Eosinophils # (0-0.7) k/uL Basophils # (0-0.2) k/uL PT (9.0-12.0) sec INR (<1.2) APTT (22.0-30.0) sec Sodium 138 (137-145) mmol/L Potassium 4.4 (3.5-5.1) mmol/L Chloride 105 (98-107) mmol/L Carbon Dioxide 23 (22-30) mmol/L Anion Gap 10 mmol/L BUN 23 H (7-17) mg/dL Creatinine 1.09 H (0.52-1.04) mg/dL Est GFR (CKD-EPI)AfAm 55 (>60 ml/min/1.73 sqM) Est GFR (CKD-EPI)NonAf 48 (>60 ml/min/1.73 sqM) Glucose 111 H (74-99) mg/dL Calcium 9.8 (8.4-10.2) mg/dL Total Bilirubin 0.5 (0.2-1.3) mg/dL AST 25 (14-36) U/L ALT 12 (4-34) U/L Alkaline Phosphatase 84 (38-126) U/L Troponin I <0.012 (0.000-0.034) ng/mL Total Protein 7.3 (6.3-8.2) g/dL Albumin 4.3 (3.5-5.0) g/dL Urine Color Urine Appearance (Clear) Urine pH (5.0-8.0) Ur Specific [place] (1.001-1.035) Urine Protein (Negative) Urine Glucose (UA) (Negative) Urine Ketones (Negative) Urine Blood (Negative) Urine Nitrite (Negative) Urine Bilirubin (Negative) Urine Urobilinogen (<2.0) mg/dL Ur Leukocyte Esterase (Negative) Disposition Clinical Impression: Altered mental status, Dementia, Paranoid delusion, Hypertensive urgency Disposition: ADMITTED IP TO THIS [facility] Referrals: Vikas Yoder MD [Primary Care Provider] - 1-2 days Time of Disposition: 14:34
[2021-07-01 13:17] LABS: Basophils # (A) 0.1 k/uL (0-0.2); Basophils % (A) 1 %; Eosinophils # (A) 0.1 k/uL (0-0.7); Eosinophils % (A) 1 %; HCT 42.6 % (34.0-46.0); Lymphocytes % (A) 13 %; MCH 30.6 pg (25.0-35.0); MCHC 32.9 g/dL (31.0-37.0); Mean Platelet Volume 8.5; Monocytes # (A) 0.5 k/uL (0-1.0); Monocytes % (A) 6 %; Neutrophils # (A) 6.2 k/uL (1.3-7.7); Neutrophils % (A) 78 %; Platelet Count 249 k/uL (150-450); RBC 4.58 m/uL (3.80-5.40); RDW 12.7 % (11.5-15.5)
[2021-07-01 13:32] LABS: Partial Thromboplastin Time 23.2 sec (22.0-30.0); Prothrombin Time 10.4 sec (9.0-12.0)
[2021-07-01 13:33] LABS: Albumin 4.3 g/dL (3.5-5.0); Calcium 9.8 mg/dL (8.4-10.2); Potassium 4.4 mmol/L (3.5-5.1); Total Bilirubin 0.5 mg/dL (0.2-1.3); Total Protein 7.3 g/dL (6.3-8.2)
--- NOTE | 2021-07-01 13:46 | XR ---
EXAMINATION TYPE: XR chest 2V DATE OF EXAM: 07/01/2021 COMPARISON: 04/17/2012 TECHNIQUE: PA and lateral views submitted. HISTORY: Altered mental status FINDINGS: The lungs are clear and there is no pneumothorax, pleural effusion, or focal pneumonia. Heart size is enlarged and there is atherosclerotic change aorta. Arthropathy of the shoulders including calcifi c tendinosis suspected on the right. Diffuse osteopenia. Hyperinflation suggests COPD. No overt failu re. Degenerative change of the spine. IMPRESSION: 1. No acute process. 2. Cardiomegaly and COPD.
[2021-07-01 14:32] LABS: Appearance,Urine Clear (Clear); Bilirubin,Urine Negative (Negative); Blood,Urine Negative (Negative); Color,Urine Yellow; Glucose,Urine (UA) Negative (Negative); Ketones,Urine Negative (Negative); Leukocyte Esterase,Urine Negative (Negative); Nitrite,Urine Negative (Negative); PH, Urine 5.5 (5.0-8.0); Protein,Urine Trace (Negative); Urobilinogen,Urine <2.0 mg/dL (<2.0)
[2021-07-01] MEDS ORDERED: SODIUM CHLORIDE 0.9% 1,000 ML IV ONE (14:34)
[2021-07-01 14:48] LABS: Amphetamine Screen,Urine Not Detected (NotDetected); Barbiturate Screen,Urine Not Detected (NotDetected); Benzodiazepines Screen,Urine Not Detected (NotDetected); Cocaine Screen,Urine Not Detected (NotDetected); Methadone Screen, Urine Not Detected (NotDetected); Opiate Screen,Urine Not Detected (NotDetected); Oxycodone Screen, Urine Not Detected (NotDetected); Phencyclidine Screen,Urine Not Detected (NotDetected); Tricyclic Antidepressant,Urine Not Detected (NotDetected); Urn Cannabinoid Scrn Not Detected (NotDetected)
[2021-07-01] MEDS: PANTOPRAZOLE 40 MG TABLET PO SCH (20:37)
[2021-07-01] MEDS ORDERED: QUEtiapine 25 MG TAB PO SCH (21:00)
[2021-07-02] MEDS: LOSARTAN 50 MG TAB PO SCH (08:24)
[2021-07-02] MEDS: PANTOPRAZOLE 40 MG TABLET PO SCH ×2 (08:24→16:40)
--- NOTE | 2021-07-02 16:16 | CT ---
EXAMINATION TYPE: CT brain wo con DATE OF EXAM: 07/02/2021 COMPARISON: 12/06/2017 HISTORY: 81-year-old female confusion, AMS TECHNIQUE: Examination was done in axial plane without intravenous contrast. Coronal and sagittal r econstructions performed. CT DLP: 1090 mGycm Automated exposure control for dose reduction was used. FINDINGS: There is no evidence of acute intracranial hemorrhage, acute ischemic changes, mass, mass-effect, or extra-axial fluid collection. There is no effacement of cerebral sulci or basal subarachnoid cister ns. Mild ventricular prominence is unchanged likely due to central cerebral atrophy. Moderate patchy white matter hypodensities in both cerebral hemispheres. Benign basal ganglionic calcifications. Athe rosclerotic calcifications of the carotid siphons. There is no midline shift. [place]ambula-white matter dist inction is preserved. Redemonstrated partial opacification right mastoid air cells. Paranasal sinuses well pneumatized and orbits and globes are intact. IMPRESSION: 1. Mild cerebral atrophy and moderate burden of chronic small vessel ischemic disease. No acute intra cranial abnormality seen. 2. Fluid within the right mastoid air cells. Correlate for any mastoid pain to exclude mastoiditis.
[2021-07-02] MEDS: QUEtiapine 25 MG TAB PO SCH ×2 (16:40→20:40)
--- NOTE | 2021-07-02 18:04 | HP ---
HISTORY AND PHYSICAL Evddt[age]car[age]-old white female came into the hospital for altered mental status, unable to take her medicines for blood pressure, memory loss and hypertension. History of dementia and paranoia for 2 years. She is getting progressively worse. She says people are trying to break into her house. She is paranoid. We are going to get psych consult to see her as well as possibly Neurology but mainly Psychiatry. Home medicines are Namenda 10 b.i.d., ferrous sulfate 325 daily, Seroquel 25 at bedtime, Cozaar 50 daily, Protonix 40 b.i.d. ALLERGIES: Negative. REVIEW OF SYSTEMS: Fourteen-point review of systems negative except for mentioned in HPI. PAST MEDICAL HISTORY: Hypertension, dementia, anemia. SOCIAL: Nonsmoker. Occasional alcohol. PHYSICAL EXAMINATION: Vital signs stable. Afebrile. Cardiovascular S1, S2. Lungs transmitted upper airway sounds. Hematology negative Homans. Psych fair mood and affect. Neurologic alert and oriented x1. Psych: She answers questions. Poor mood and affect. Blood pressure is high 184 to 212 over 70s to 90s, temperature 98.2, pulse 60 to 58, respiratory 16 to 18. ASSESSMENT: 1. Hypertensive encephalopathy. 2. Encephalopathy secondary to uncontrolled hypertension. 3. Altered mental status secondary to hypertensive encephalopathy. 4. urinary tract infection. 5. Mild dehydration. 6. Prerenal renal azotemia. Will have Psychiatry to see her. Rehydrate her. Control blood pressure. Prognosis is guarded. MMODL / IJN: [id number] /
--- NOTE | 2021-07-02 20:40 | CONS ---
CONSULTATION DATE OF SERVICE: 07/02/2021 PURPOSE FOR CONSULTATION: Evaluate for dementia and paranoia. HISTORY OF PRESENTING ILLNESS: I reviewed issues with the patient's nurse. I interviewed the patient. I talked to the patient's son. The patient herself was not able to provide any reliable information. The patient is an 81-year-old female. She has been living independently. She was not able to tell me anything of her current circumstances or much about her general situation. Her son notes that she has been having some struggles over the last ten years. There was a sense that even ten years ago she was having some paranoid thinking about her pills and what doctors were doing. She has started showing symptoms of cognitive decline, especially in the last two years. She has been living in her own apartment. She used to function totally independently, though in the last year or more she has had a significant decline in function. She used to cook and clean, though has done little if any of that. Her son notes that in the last year she has become increasingly paranoid about any number of things. She has been at best reluctant to take medications, and in fact has likely done things to avoid medications altogether. Her son noted that for one of her GI pills her last refill was March 24. In the last two months the son has been coming to her apartment at least 3 times a week and would encourage her to take medications, though most of the time she would say she did want to take the medicines at the time that he was there, so he was not able to observe whether she actually swallowed medications or not. In the last two months she has become increasingly paranoid. She will close the curtains at her apartment or if she comes to the son's apartment, believing that there are people outside watching her. She makes comments that people are threatening her in various ways. She has made indications that she believes medicine that has been prescribed has been poison. Even going back ten years ago she was reluctant to take medications, believing they were poison, which led to her blood pressure becoming quite high over a persistent period of time. Just in the last few days she has not been sleeping well and recently stayed at her son's house and was up much of the night telling him that there were people outside of the house trying to get in. The son noted smith on her arms which apparently were related to bites from bedbugs, though the patient was denying any problems with that. She had been saying that she did believe bedbugs were coming into her apartment from holes someone had drilled in the floor. It is also noted that she had an endoscopy and colonoscopy in September of this year. Results revealed that she had ulcerations and erosions in the distal esophagus with stricture. In addition she had a distal rectal polyp. It is noted that the patient stated to her son recently that she is passing blood in her stools. It is unclear what she actually observed, though the assumption is that she may have seen bright red blood per rectum. She had a psychiatric consultation during a September admission. She was admitted for altered mental status and was weak and dizzy. She was found to have a hemoglobin of 5.5. She was seen by Dr. Martinez. He documented that she was disoriented. She had a diagnosis of dementia over the past two years. His assessment was delirium. She was on Aricept and Namenda at that time along with Seroquel 25 mg a day, which had been prescribed by her primary care physician. The Seroquel was continued at that time. According to the patient's son, when the patient has taken her medications consistently she seemed to do better, including with less indications toward paranoid thinking. 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 Because she was not taking her medications, the son took the car away, though she continues to insist that she should be able to drive and that she wants a car. MENTAL STATUS EXAM: Patient was lying in bed. She gave fairly good eye contact. She was a little slowed in her movements. She would respond to questions, though for the most part she did not give any reliable information. Usually she just gave one- or two-word responses. She could not give me any information about her current situation. She just was insisting that she should go home and that she did need to be in the hospital. She had a bland affect. She smiled. She had a friendly manner. Her mood was reserved. It was difficult to assess how distressed she might be. On exam, there was no outward indication for hallucinations or delusional thinking, though it does sound that she continues with persistent paranoid delusions. She made no indication of thoughts of harm. On cognitive exam, the patient was able to say she was at [facility] in [place]. She did not make an effort at answering day, date or year. When I asked her what year it was, she said, "That's not really important." She did not make an effort to answer any other formal cognitive questions. ASSESSMENT: This 81-year-old female is diagnosed with dementia in the moderate range. She is on Namenda, though it is not likely that she will get any benefits from Namenda at this point in her progression. I will continue Seroquel. I will increase the dose to 25 mg twice a day. We may need to continue going higher on Seroquel related specifically to her paranoid thinking. It may be helpful to try to adjust her medications so she takes her medicines just one time a day, which might allow her to get home to some degree of independent living if she was to have daily in-home support. If we could get paranoia to resolve, the patient may be able to engage reasonably well with supports in a home setting. I advised the son that she is no longer able to drive a car because of cognitive impairment. There needs to be consideration for snf placement. I will continue to follow. MMODL / IJN: [id number] /
--- NOTE | 2021-07-02 21:49 | P.CNNES ---
History of Present Illness Consult date: 07/02/21 Requesting physician: Vikas Yoder Reason for Consult: Confusion History of Present Illness: Patient is a 81-year-old female with history of significant dementia and paranoia at least for last 2 years, progressively getting worse came to the hospital by ambulance today at 12:02 PM for behavioral problems. Patient has been refusing to take her medications and as a result blood pressure was elevated. As per EMS flow sheet, when they arrived, patient was alert but confused and mildly combative. Patient has been noncompliant with medication has become increasingly confused, became combative per family. Patient's physician and family requested further evaluation and treatment. Patient's vitals shows blood pressure 170/110, pulse rate 68, saturation 98%. Blood sugar 178. Patient's blood test shows normal CBC, PT/PTT, electrolytes are normal, BUN 23, creatinine 1.09. Normal hepatic panel, troponin. UA negative, urine drug screen negative and coronavirus PCR negative. Patient tells me that she came to the hospital because she passed out. Nothing is mentioned in the EMS flow sheet about passing out. Patient states that she does not remember what she was doing before she passed out. However she admits that it is the first time it has ever happened. Patient states that she takes her medications regularly, some days she may miss her doses. She lives with her son Dillon. Patient states her other son Az lives in [place]. She does not use any assistive device, walker or a cane. She walks by herself. Patient herself denies any tobacco, alcohol. Denies diabetes, although admits to having hypertension. Patient's home medications include Namenda 10 mg twice a day, Cozaar 50 mg, Protonix, ferrous sulfate and Seroquel [address] head showed mild cerebral atrophy and moderate burden of chronic small vessel ischemic change. No acute process. Fluid within the right mastoid air cells. Correlate for any mastoid pain to exclude mastoiditis. Patient's previous MRI of the brain with and without contrast from 01/31/2018 showed mild diffuse age- related cerebral atrophy and more moderate chronic small vessel ischemic change. No suspicious enhancement. Increased fluid signal right mastoid air cells raises concern for mastoiditis, clinical correlation is advised. EKG shows sinus rhythm with occasional PVCs. Chest x-ray showed no acute process. Cardiomegaly and COPD. I spoke to patient's son, who states that patient has her own apartment, but her apartment has been infested with bedbugs, therefore she has moved with him in the past 2 months. Patient has been having severe paranoia for the last 5-10 years, which seems to be getting worse. Initially there were small little things that would happen, but gradually is getting worse. She was believing that the person below her apartment was drilling holes up and in fasting her house with the bedbugs. She was thinking that people are trying to break into the events. Last night she was holding night up, peaking through the window, assuming that someone was trying to break into the house. At 4:04 AM she called her son that people were in the garage. Later her son found her on the couch, laying retirement on the couch almost as if she was very tired and just slept. He is not sure if she passed out, or just went to sleep based upon positioning of her body on the couch. There was no strokelike symptoms reported. Patient is hiding pills. She would take medication only 50% of the time. Her memory is g etting worse. When she is in a bad mood, she would not take her medications. Patient currently is on Namenda 10 mg twice a day. However she would not take medication twice a day, and would take medication only once a day. Lately she has been giving hard time even taking pills once a day. Patient was previously on Aricept, but it was discontinued by her primary physician because it was slowing her heart rate. Review of Systems As above in detail. Denies any problem with the vision, hoarseness, sore throat, dysphagia. Denies any shortness of breath, chest pain, abdominal pain, nausea vomiting diarrhea. No fever or chills. No rash. Past Medical History Past Medical History: Hypertension Additional Past Medical History / Comment(s): Dementia, anemia History of Any Multi-Drug Resistant Organisms: None Reported Past Surgical History: No Surgical Hx Reported Past Anesthesia/Blood Transfusion Reactions: No Reported Reaction Past Psychological History: No Psychological Hx Reported Smoking Status: Never smoker Past Alcohol Use History: Occasional Past Drug Use History: None Reported Medications and Allergies Home Medications Medication Instructions Recorded Confirmed Type Memantine [Namenda] 10 mg PO BID 09/25/20 07/01/21 History Losartan [Cozaar] 50 mg PO DAILY #30 tab 09/29/20 07/01/21 Rx Pantoprazole Sodium [Protonix] 40 mg PO BID #120 tablet. 09/29/20 07/01/21 Rx Ferrous Sulfate [Feosol] 325 mg PO DAILY 07/01/21 07/01/21 History QUEtiapine [SEROquel] 25 mg PO HS 07/01/21 07/01/21 History Allergies Allergy/AdvReac Type Severity Reaction Status Date / Time No Known Allergies Allergy Verified 07/01/21 13:07 Physical Examination - Vital Signs Vital Signs: Vital Signs Temp Pulse Pulse Resp BP BP Pulse Ox 07/02/21 11:50 97.6 F 60 16 97/61 96 07/02/21 02:00 98.5 F 60 16 120/61 94 L 07/01/21 22:44 98.2 F 68 16 160/77 93 L 07/01/21 20:37 80 16 153/79 96 07/01/21 20:00 16 Intake and Output 07/02/21 07/02/21 07/02/21 06:59 14:59 22:59 Intake Total 590 Balance 590 Intake: Oral 590 Other: # Voids 2 2 Patient is an elderly female, in no acute distress. Patient is alert awake. Patient knows her name, thinks she is 76 years of age. Patient knows that she was born in May 1940. She states the month is June and the year is 2011. She knows that she is in [place] in [place]. She could not tell me name of the current president. When I give her choices, she was able to pick the current president on the second prompt. Patient has mildly positive visuospatial apraxia, required repeated prompts to perform the task. Palmomental reflex was absent. Speech and language functions are normal. Attention, concentration and fund of knowledge is adequate. On cranial examination, pupils are round and reacting to light, visual davila are full on confrontation, extraocular muscles are intact with no nystagmus. Face is symmetric, tongue protrudes to the midline. Palatal elevation and sensation normal, hearing and shoulder shrug normal, facial sensation normal. Shoulder shrug normal. On muscle strength testing, there is no pronator drift and the strength is normal in arms and legs distally and proximally. Deep tendon reflexes are 1 in the upper and lower limbs and plantars downgoing. Sensory to touch is equal with no neglect. Cerebellar function showed no ataxia for [id number] testing. No dysdiadochokinesia. Tone and bulk of muscles normal. Gait deferred. On general examination, there is no carotid bruit or murmur, S1-S2 audible. Abdomen is soft nontender. Chest is clear. Peripheral pulses are present. No edema. Results - Laboratory Findings CBC and BMP: 07/01/21 13:01 07/01/21 13:01 Abnormal Lab Findings: Abnormal Labs 07/01/21 07/01/21 13: 13:01 BUN 23 H Creatinine 1.09 H Glucose 111 H Urine Protein Trace H Assessment and Plan Assessment: * Dementia, probably Alzheimer's with behavioral disturbance. * Paranoia, likely due to above. Rule out delirium. * Possible syncope versus physiologic process like sleeping. * Hypertension Plan: * Continue Namenda 10 mg twice a day. * Patient was previously on Aricept, but was producing bradycardia, therefore it has been stopped by her primary physician about a month ago. Otherwise Namzeric was a good choice, as it has both Namenda and donepezil, both in 1 pill form, given once a day. * Psychiatry has seen the patient, increased dose of Seroquel. * We will check B12, folate, RPR and MMA. * Carotid Doppler, rule out stenosis. * Discussed with patient's son in detail.
[2021-07-03] MEDS: PANTOPRAZOLE 40 MG TABLET PO SCH ×2 (08:43→17:31)
[2021-07-03] MEDS: QUEtiapine 25 MG TAB PO SCH ×2 (08:43→20:12)
[2021-07-03] MEDS: LOSARTAN 50 MG TAB PO SCH (08:43)
[2021-07-03 09:40] LABS: Folate, Serum 7.9 ng/mL (4.40-31.00)
[2021-07-03] MEDS: FOLIC ACID 1 MG TAB PO SCH (14:10)
--- NOTE | 2021-07-03 16:14 | US ---
EXAMINATION TYPE: US carotid duplex BILAT DATE OF EXAM: 07/03/2021 COMPARISON: NONE CLINICAL HISTORY: Syncope. AMS, dementia EXAM MEASUREMENTS: RIGHT: Peak Systolic Velocity (PSV) cm/sec ----- Right CCA: 53.1 ----- Right ICA: 66.6 ----- Right ECA: 68.6 ICA/CCA ratio: 1.3 RIGHT: End Diastole cm/sec ----- Right CCA: 11.8 ----- Right ICA: 25.3 ----- Right ECA: 10.1 LEFT: Peak Systolic Velocity (PSV) cm/sec ----- Left CCA: 56.9 ----- Left ICA: 51.7 ----- Left ECA: 72.9 ICA/CCA ratio: 0.9 LEFT: End Diastole cm/sec ----- Left CCA: 14.5 ----- Left ICA: 25.4 ----- Left ECA: 6.6 VERTEBRALS (direction of flow): Right Vertebral: Antegrade Left Vertebral: Antegrade Rhythm: Normal Heterogeneous plaque at bilateral bulbs, no significant stenosis seen IMPRESSION: There is antegrade flow in the vertebral arteries. The images and measurements suggest less than 25% stenosis in both internal carotid arteries. Criteria for Assigning % of Stenosis / Diameter reduction (Estimation based on the indirect measurements of the internal carotid artery velocities (ICA PSV). 1. Normal (no stenosis)=ICA PSV < 125 cm/s: ratio < 2.0: ICA EDV<40 cm/s. 2. Less than 50% stenosis=ICA PSV < 125 cm/s: ratio < 2.0: ICA EDV<40 cm/s. 3. 50 to 69% stenosis=ICA PSV of 125 to 230 cm/s: ration 2.0 ? 4.0: ICA EDV 40-100 cm/s. 4. Greater than 70% stenosis to near occlusion= ICA PSV > 230 cm/s: ratio > 4.0: ICA EDV > 100 cm/s. 5. Near occlusion= ICA PSV velocities may be low or undetectable: variable ratio and ICA EDV. 6. Total occlusion=unable to detect flow.
--- NOTE | 2021-07-03 17:10 | P.PN ---
Subjective Progress Note Date: 07/03/21 07/03/2021: This is a Tele-neurology follow up performed today on 07/03/2021. Patient offers no complaints. Per nursing report, she did not have any paranoia. No agitation overnight. She is alert and oriented 3. She follows directions well. Family is requesting placement to rehab. Patient wants to go home. Objective - Vital Signs Vital signs: Vital Signs Temp 98.4 F 07/03/21 07:40 Pulse 63 07/03/21 08:30 Resp 18 07/03/21 08:30 BP 135/74 07/03/21 07:40 Pulse Ox 99 07/03/21 07:40 Intake & Output 07/02/21 07/03/21 07/03/21 18:59 06:59 18:59 Intake Total 240 Balance 240 Intake: Oral 240 Other: # Voids 2 - Exam Patient is alert and awake. She knows she is in Hospital in [place] in [place]. She states the month is November and could not tell the year. She knows her date of . Could not tell name of the president, but with multiple choices, she did pick the correct name. Patient states she has only 2 sons. Her muscle strength is normal. Cranial nerves are normal. - Labs CBC & Chem 7: 07/01/21 13:01 07/01/21 13:01 Assessment and Plan Assessment: * Dementia, probably Alzheimer's with behavioral disturbance. * Paranoia, likely due to above. Rule out delirium. * Possible syncope versus physiologic process like sleeping. * Hypertension Plan: * Continue Namenda 10 mg twice a day. * Patient was previously on Aricept, but was producing bradycardia, therefore it has been stopped by her primary physician about a month ago. Otherwise Namzeric was a good choice, as it has both Namenda and donepezil, both in 1 pill form, given once a day. * Psychiatry has seen the patient, increased dose of Seroquel. * B12 553, folate 7.90, RPR nonreactive and MMA still pending. Folic acid is borderline, we will start folic acid replacement 1 mg daily. * Carotid Doppler showed heterogenous plaque bilateral carotid bulbs. No stenosis. Antegrade flow in both vertebral arteries. * We will start aspirin 81 mg daily because of significant atherosclerotic plaque and risks for stroke TIA. * Neurologically clear.
[2021-07-03] MEDS: ASPIRIN 81 MG PO SCH (17:31)
--- NOTE | 2021-07-03 22:40 | PN ---
PROGRESS NOTE 81-year-old white female with confusion, possible delirium. Neurology said she has dementia. Recommend to stay on Namenda 10 b.i.d., Cozaar 50 daily for hypertensive encephalopathy, Protonix for GERD, Seroquel for insomnia, mood disorder. Cardiovascular S1-S2. Lungs clear. GI soft. Vital signs stable. ASSESSMENT: 1. Dementia. 2. Delirium. 3. Hypertension. 4. GERD. 5. Hypertensive encephalopathy. Continue current treatment. Follow up in next 24 to 48 hours for discharge back home. She does not want to go to a detention. MMODL / IJN: [id number] /
[2021-07-04] MEDS: FOLIC ACID 1 MG TAB PO SCH (07:26)
[2021-07-04] MEDS: PANTOPRAZOLE 40 MG TABLET PO SCH ×2 (07:26→17:44)
[2021-07-04] MEDS: ASPIRIN 81 MG PO SCH (07:26)
[2021-07-04] MEDS: LOSARTAN 50 MG TAB PO SCH (07:26)
[2021-07-04] MEDS: QUEtiapine 25 MG TAB PO SCH ×2 (07:26→20:43)
[2021-07-04 20:27] VITALS: RESP 16
--- NOTE | 2021-07-04 21:39 | PN ---
PROGRESS NOTE Patient is improving mentally. She wants to go home. Neurology essentially cleared her from any significant findings. Temp 98, pulse 54, respiratory 16 to 18, blood pressure 134/78, O2 96 on room air. Cardiovascular S1, S2. Lungs clear. GI soft. Hematology: Negative Homans. Psych: Fair mood and affect. ASSESSMENT: 1. Dementia. 2. Delirium. 3. Obesity. 4. Prognosis guarded. Possible discharge home tomorrow. Medicines finalized by Neurology. MMODL / IJN: [id number] /
[2021-07-05 05:39] VITALS: BP 162/70; PULSE 53; TEMP 97.3
[2021-07-05] MEDS: PANTOPRAZOLE 40 MG TABLET PO SCH (07:59)
[2021-07-05] MEDS: FOLIC ACID 1 MG TAB PO SCH (08:00)
[2021-07-05] MEDS: QUEtiapine 25 MG TAB PO SCH (08:00)
[2021-07-05] MEDS: ASPIRIN 81 MG PO SCH (08:00)
[2021-07-05] MEDS: LOSARTAN 50 MG TAB PO SCH (08:00)
[2021-07-05] MEDS ORDERED: MEMANTINE 10 MG TAB PO SCH (09:00)
== END 2021-07-05 16:02 | disposition home health service (06) | DRG 305 ==
LOC: EC 12:02 → 5NMEDONC 14:35
PROVIDERS: ADMIT Family Medicine; ATTEND Family Medicine
DX: I16.0 Hypertensive urgency (principal); F02.81 Dementia in other diseases classified elsewhere, unspecified severity, with behavioral disturbance; I67.4 Hypertensive encephalopathy; N39.0 Urinary tract infection, site not specified; T50.996A Underdosing of other drugs, medicaments and biological substances, initial encounter; I10 Essential (primary) hypertension; E66.9 Obesity, unspecified; Z20.822 Contact with and (suspected) exposure to COVID-19; Z68.20 Body mass index [BMI] 20.0-20.9, adult; E86.0 Dehydration; R55 Syncope and collapse; G47.00 Insomnia, unspecified; G30.9 Alzheimer's disease, unspecified; F91.8 Other conduct disorders; G31.89 Other specified degenerative diseases of nervous system; I49.3 Ventricular premature depolarization; J44.9 Chronic obstructive pulmonary disease, unspecified; K21.9 Gastro-esophageal reflux disease without esophagitis; K22.2 Esophageal obstruction; Z79.899 Other long term (current) drug therapy; Z91.14 Patient's other noncompliance with medication regimen
CPT/HCPCS: 36415; 70450; 71046; 80053; 80306; 81003; 82607; 82746; 83921; 84484; 85025; 85610; 85730; 86780; 87635; 93005; 93880; 96361; 96374; 99285